=== PATIENT | female | born 1960 | race Caucasian/White ===

== ENCOUNTER 2021-06-13 13:33 | Emergency (ER) | payer BC, SELFPAY ==
--- NOTE | ~2021-06-13 | XR_ITS ---
XR knee LT min 4V DATE: 06/13/2021 13:56 INDICATION: Fall yesterday. Pain, swelling TECHNIQUE: 5 views COMPARISON: 01/24/2008 left knee FINDINGS: There is prominent distention of the suprapatellar bursa consistent with large knee joint e ffusion. There is periarticular spurring at the patellofemoral, lateral and to a greater extent medial compart ments. There is moderately severe loss of medial compartment joint space. There is valgus deformity. No fracture or dislocation, periosteal reaction or bone destruction, radiopaque intra-articular loose body or chondrocalcinosis is noted. IMPRESSION: Tricompartment osteoarthritis, most prominent at the medial compartment Prominent knee joint effusion; consider MRI for further evaluation for possible internal derangement No fracture or dislocation Reviewed, dictated and finalized at location A. IMPRESSION: Tricompartment osteoarthritis, most prominent at the medial compart ment Prominent knee joint effusion; consider MRI for further evaluation for possible internal derangement No fracture or dislocation
[2021-06-13 14:07] VITALS: BP 132/101; PULSE 80; RESP 16; TEMP 36.6; O2SAT 98
--- NOTE | 2021-06-13 15:29 | PC.NURSE ---
pt to ER with c/o left knee pain after dog running into her. PMS intact. no other injuries.
[2021-06-13] MEDS: KETOROLAC (*BKC) 60 MG/2 ML VIAL IM (16:12)
--- NOTE | 2021-06-13 16:29 | ED.FALL ---
HPI - Fall General Chief Complaint: Fall Stated Complaint: fall yesterday Time Seen by Provider: 06/13/21 15:13 Source: patient Mode of arrival: ambulatory Limitations: no limitations History of Present Illness HPI Narrative: Patient is a 61-year-old female who presents the ED with report of left knee pain. Patient reports she was tangled in her daughter's dog's leash yesterday when she fell. She landed on her left knee but is unsure of any twisting maneuvers. She complains of pain and swelling to her left knee since the fall. She states she is able to ambulate but is only able to bear minimal weight on this leg. She has been taking Tylenol at home for pain. Patient also sustained some abrasions to her right wrist, but denies any pain in her wrist. No other injuries. She did not fall and hit her head. No loss of consciousness. No prodromal symptoms prior to the fall. Related Data Allergies Allergy/AdvReac Type Severity Reaction Status Date / Time amitriptyline Allergy Mild Unverified 06/02/08 14:39 Review of Systems Review of Systems: CONSTITUTIONAL: Denies fever. CARDIOVASCULAR: Denies chest pain. RESPIRATORY: Denies dyspnea. GASTROINTESTINAL: Denies abdominal pain, nausea, vomiting. SKIN: Reports abrasion to R wrist. MUSCULOSKELETAL: Reports L knee pain. Denies R wrist pain, L ankle/hip pain. NEUROLOGIC: Denies HI, LOC, numbness, tingling, or weakness. All systems reviewed & are unremarkable except as noted in HPI and below PMFSH Past Medical History Medical History Asthma Hyperlipidemia Surgical History Surgical History (Updated 06/13/21 @ 16:31 by Afia Vargas PA-C) No pertinent past surgical history Social History Social History Smoking status: Smoker, status unknown Alcohol intake: current Exam Narrative: GENERAL: Well appearing, well-nourished, non-toxic, in no acute distress. HEAD: Normocephalic, atraumatic. RESPIRATORY: Airway patent, respirations nonlabored. Clear to auscultation bilaterally, no rales, rhonchi, wheezing. CARDIOVASCULAR: Regular rate and rhythm without murmurs, rubs, or gallops. Peripheral pulses 2+ and equal bilaterally. MUSCULOSKELETAL: Moves all extremities. No gross deformities. TTP of L anterior/superior lateral joint line. No significant pain with varus or valgus stress testing or anterior drawer test. No significant pain with ballottement of patella. Mild swelling in L knee joint compared to R. Limited flexion of L knee due to pain. Full passive extension of L knee. SKIN: Small abrasion to palm of R hand. NEURO: A&O X3. Speech clear. Cranial nerves II-XII grossly intact. Steady gait. No ataxic movements. PSYCHIATRIC: Appropriate mood and affect. Normal interaction. Course Vital Signs Vital signs: Vital Signs Temperature 98 F 06/13/21 14:07 Pulse Rate 80 06/13/21 14:07 Respiratory Rate 16 06/13/21 14:07 Blood Pressure 132/101 H 06/13/21 14:07 Pulse Oximetry 98 06/13/21 14:07 Temperature 98 F 06/13/21 14:07 Pulse Rate 80 06/13/21 14:07 Respiratory Rate 16 06/13/21 14:07 Blood Pressure 132/101 H 06/13/21 14:07 Pulse Oximetry 98 06/13/21 14:07 MDM - Fall MDM Narrative Medical decision making narrative: Patient presented to ED after fall that occurred yesterday. Complains of pain to left knee. Difficulty ambulating due to pain. Pain superior lateral on exam. Limited active range of motion due to pain. X-ray showing arthritis and prominent joint effusion. Patient without significant tenderness with ballottement of patella. No signs of compartment syndrome. Neurovascularly intact. She will be placed in a knee immobilizer. She has crutches and a walker at home for assistance with ambulation. Discussed RICE treatment. Patient was given follow-up information for Dr. Mckeon. Discussed that ligamentous and meniscal injuries are
== END 2021-06-13 16:52 | disposition home or self-care (01) ==
PROVIDERS: Emergency Provider Emergency Medicine; PCP Nurse Practitioner Family
DX: M25.462 Effusion, left knee (principal); E78.5 Hyperlipidemia, unspecified; W19.XXXA Unspecified fall, initial encounter
CPT/HCPCS: 73564; 96372; 99283; J1885

== ENCOUNTER 2022-08-19 13:56 | Emergency (ER) | payer BC, SELFPAY ==
--- NOTE | ~2022-08-19 | CT_ITS ---
EXAMINATION: CT abdomen pelvis w con DATE: 08/19/2022 16:07 INDICATION: Lower abdominal pain TECHNIQUE: Computed tomography (CT) of the abdomen and pelvis was performed with 100 mL Omnipaque-350 intravenous contrast. Automated exposure control and iterative reconstruction technique were employe d. The dose-length product was 1131.61 mGy-cm. COMPARISON: None FINDINGS: Lung bases are clear. Heart size is normal. Aortic valve calcification. No pericardial or pleural eff usion. Liver, gallbladder, spleen, pancreas and bilateral adrenal glands are normal. There are bilate ral renal cysts, the largest on the left measuring 5.3 cm and the remainder in both kidneys measuring <1 cm. Moderate diverticulosis along the sigmoid colon with mild wall thickening and subtle surround ing stranding at the proximal sigmoid colon suspicious for a mild diverticulitis. No abscess or free intraperitoneal gas. Trace amount of either reactive versus physiologic free fluid in the deep pelvis . Normal small bowel and appendix. Bladder, anteverted uterus and bilateral adnexa are unremarkable. No pathologically enlarged abdominal or pelvic lymphadenopathy. Severe spondylosis in the lower thora cic and upper lumbar spine. Chronic mild anterior wedging at T10-T12. IMPRESSION: 1. Sigmoid diverticulosis with mild wall thickening and suggestion of minimal surrounding inflammator y stranding at the proximal sigmoid colon suspicious for a mild radiographically uncomplicated divert iculitis. Reviewed, dictated and finalized at location A. IMPRESSION: 1. Sigmoid diverticulosis with mild wall thickening and suggestion of minimal s urrounding inflammatory stranding at the proximal sigmoid colon suspicious for a mild radiographically uncomplicated diverticulitis.
[2022-08-19 13:59] VITALS: BP 156/56; PULSE 65; RESP 18; TEMP 36.4; O2SAT 99
[2022-08-19 14:10] LABS: Basophils Percent Auto 0.3 % (0.2-1.2); Eosinophils Absolute Auto 0.1 K/mm3 (0-0.3); Eosinophils Percent Auto 1.9 % (0-4.4); Hematocrit 42.1 % (37.0-47.0); Hemoglobin 13.8 g/dL (12.0-15.0); Immature Granulocyte Absolute 0.01 K/mm3 (0.00-0.031); Immature Granulocyte Percent A 0.1 % (0-0.5); Lymphocytes Absolute Auto 2.14 K/mm3 (0.9-3.2); Lymphocytes Percent Auto 31.9 % (18.3-44.2); Mean Corpuscular HGB Conc 32.8 g/dl (32-36); Mean Corpuscular Volume 97.7 fl (80-100); Monocytes Absolute Auto 0.6 K/mm3 (0.1-0.6); Monocytes Percent Auto 9.1 % (2.6-8.5); Neutrophils Absolute Auto 3.8 K/mm3 (1.3-6.7); Neutrophils Percent Auto 56.7 % (45.5-73.1); Platelet Count Result 205 k/mm3 (150-375); Red Blood Count 4.31 M/mm3 (4.2-5.4); Red Cell Distribution Width 13.4 % (11.5-14.5); White Blood Count 6.7 K/mm3 (4.5-10.0)
[2022-08-19 14:20] LABS: Alanine Aminotransferase 36 U/L (6-35); Albumin Level 4.3 g/dL (3.5-5.1); Alkaline Phosphatase 109 U/L (38-126); Anion Gap 6 mmol/L (8-16); Aspartate Amino Transferase 36 U/L (14-36); Bilirubin,Total 0.4 mg/dL (0.2-1.3); Blood Urea Nitrogen 12 mg/dL (7-17); Calcium 9.2 mg/dL (8.4-10.2); Carbon Dioxide 27 mmol/L (22-30); Chloride 106 mmol/L (98-107); Estimated CRCL calculation 78 ml/min; Estimated Glomerular Filt Rate > 60; Glucose 101 mg/dL (65-110); Lipase 87 U/L (23-300); Sodium 139 mmol/L (137-145)
[2022-08-19 14:48] LABS: Appearance Urine Clear (Clear); Bilirubin Urine Negative (Negative); Blood Urine Negative (Negative); Color Urine Yellow (Yellow); Glucose Urine UA Negative (Negative); Ketones Urine Negative (Negative); Leukocyte Esterase Ur Negative LEU/UL (Negative); Nitrate Urine Negative (Negative); Protein Urine Negative (Negative); Specific Grav Ur 1.004 (1.001-1.035); Urobilinogen Urine 0.2 mg/dL (<2.0)
[2022-08-19 14:51] LABS: Add Urine Microscopic? NO
[2022-08-19] MEDS: SODIUM CHLORIDE 0.9% IV 1,000 ML 999 ML IV CONT (15:40)
--- NOTE | 2022-08-19 15:54 | ED.ABDPAIN ---
HPI - Abdominal Pain General Chief Complaint: Abdominal Pain Stated Complaint: diverticulitis is acting up Time Seen by Provider: 08/19/22 15:13 Source: patient, RN notes reviewed and old records reviewed Mode of arrival: ambulatory Limitations: no limitations History of Present Illness HPI narrative: This is a 62 year old female who presents for evaluation of bloody stools and abdominal pain. She reports lower abdominal pain for 5 days. This pain is intermittent and she describes as cramping. This pain occurs usual before she has bowel movement. She states she has been passing stool mixed with blood for 5 days. She states her bleeding has not gotten worse. She reports chills and subjective fever. She has intermittent nausea. She reports colonoscopy 3 years ago showing polyps and possible diverticulosis. She does not think she has ever had diverticulitis after further discussion. Related Data Allergies Allergy/AdvReac Type Severity Reaction Status Date / Time amitriptyline Allergy Mild Unknown Verified 08/19/22 17:23 Review of Systems Constitutional: Constitutional: Denies weakness Cardiovascular: Cardiovascular: Denies syncope, Denies rapid heart rate, Denies irregular heart rhythm, Denies leg edema and Denies dyspnea Respiratory: Respiratory: Denies chest congestion, Denies hemoptysis, Denies excessive phlegm production and Denies dyspnea Gastrointestinal: Gastrointestinal: Reports abdominal pain, Reports hematochezia, Denies diarrhea, Reports nausea and Denies vomiting Genitourinary: Genitourinary: Denies hematuria and Denies dysuria Musculoskeletal: Musculoskeletal: Denies joint swelling, Denies loss of height and Denies muscle weakness Neurologic: Denies syncope, Denies focal weakness and Denies weakness PMFSH Past Medical History Medical History Asthma Hyperlipidemia Surgical History Surgical History No pertinent past surgical history Social History Social History Smoking status: Smoker, status unknown Alcohol intake: current Exam Const: General: alert Orientation/consciousness: patient oriented x3 HENMT: Head: normal to inspection Eyes: EOM: EOMs intact bilaterally Chest: Chest palpation & inspection: normal inspection of the chest Resp: Effort & Inspection: normal respiratory effort Auscultation: clear to auscultation bilaterally Cardio: Rate: regular rate Rhythm: regular rhythm Heart sounds: no murmurs GI: GI Palp: Yes Soft to palpation, Yes Tenderness to palpation present (GI) (suprapubic), No Guarding due to palpation present (GI) and No Rigid due to palpation Auscultation: normal bowel sounds Other: no external hemorrhoid, no gross blood, no stool, faint positive hemoccult, no stool Skin: General skin exam: normal color Rashes: no rashes Wounds: no wounds Neuro: General: patient oriented x3, moves all extremities and CN's II-XI intact bilaterally Extrem: General: normal to inspection Psych: Mental Status: mental status grossly normal Affect: normal affect Attitude: cooperative Course Reevaluation(s) Reevaluation #1: PAtient is resting comfortably in bed receiving IV fluids. She denies any pain or bleeding. REctal exam did not show active bleeding. cbc is normal. I Discussed treatment with antibiotics and GI follow up. She states she has a GI doctor that she has been told to call to get colonoscopy. She will now make sure to make the appointment. Date: 08/19/22 Time: 17:03 Vital Signs Vital signs: Vital Signs Temperature 97.6 F 08/19/22 13:59 Pulse Rate 65 08/19/22 13:59 Respiratory Rate 18 08/19/22 13:59 Blood Pressure 156/56 H 08/19/22 13:59 Pulse Oximetry 99 08/19/22 13:59 Temperature 97.6 F 08/19/22 13:59 Pulse Rate 65 08/19/22 13:59 Respiratory Rate 18 07
[2022-08-19] MEDS: AMOXICILLIN/CLAVULANATE K 875-125 MG TAB 1 TABLET PO (17:23)
== END 2022-08-19 17:25 | disposition home or self-care (01) ==
PROVIDERS: Emergency Medicine; Emergency Provider General Practice; PCP Nurse Practitioner Family
DX: K57.33 Diverticulitis of large intestine without perforation or abscess with bleeding (principal); J45.909 Unspecified asthma, uncomplicated; E78.5 Hyperlipidemia, unspecified
CPT/HCPCS: 36415; 74177; 80053; 81003; 83690; 85025; 96360; 99284; A9270; J7030; Q9967

== ENCOUNTER 2022-12-16 14:58 | Emergency (ER) | payer BC, SELFPAY ==
--- NOTE | ~2022-12-16 | CT_ITS ---
EXAMINATION: CT abdomen pelvis w con DATE: 12/16/2022 16:51 INDICATION: Left abdominal pain is status post colonoscopy TECHNIQUE: Computed tomography (CT) of the abdomen and pelvis was performed with 100 mL Omnipaque-350 intravenous contrast. Automated exposure control and iterative reconstruction technique were employe d. The dose-length product was 802.47 mGy-cm. COMPARISON: 08/19/2022. FINDINGS: Lower thorax: Unremarkable Liver: Normal. Biliary/Gallbladder: Gallbladder is normal. No bile duct dilation. Pancreas: No mass or duct dilation. Spleen: Normal. Adrenals:No mass. Kidneys: No suspicious mass, obstructing stone, or hydronephrosis. 5.5 cm left inferior pole cyst. Mu ltiple additional cysts and lesions that are too small to characterize but most likely represent cyst s bilaterally. GI tract: No small or large bowel dilation. Normal appendix. Diverticulosis. Inflamed diverticulum at the junction of the descending colon and sigmoid, with minimal presumably reactive inflammation/flui d in the adjacent paracolic gutter. No free air. No abscess. Mesentery/Peritoneum: No ascites, mass, or free air. Retroperitoneum: No mass. Atherosclerotic abdominal aortic and/or arterial calcifications. Pelvis: Pelvic organs are within normal limits. Soft Tissues: Small uncomplicated bilateral inguinal hernias. Bones: No acute osseous finding. IMPRESSION: Acute uncomplicated left lower quadrant diverticulitis. Reviewed, dictated and finalized at location K.
[2022-12-16 15:13] VITALS: BP 156/73; PULSE 88; RESP 17; TEMP 36.6; O2SAT 97
--- NOTE | 2022-12-16 15:36 | ED.ABDPAIN ---
HPI - Abdominal Pain General Chief Complaint: Abdominal Pain Stated Complaint: ABD PAIN S/P COLONOSCOPY Time Seen by Provider: 12/16/22 15:36 Source: patient History of Present Illness HPI narrative: 62 years old white female came to the emergency room with pain at the left lower quadrant, sharp, feels like a scar tissue the years, worse with movement, better laying stable. She denies any fever, chills, nausea, vomiting. Patient reported vomiting once last night. Currently feeling okay declined to take any pain medication at this time. History of hyperlipidemia, she smokes cigarettes and marijuana, denies alcohol intake, denied any history of abdominal surgery. Patient had regular colonoscopy 1 week ago and was told that the finding was within normal limits. Patient drove herself to the emergency room. Related Data Allergies Allergy/AdvReac Type Severity Reaction Status Date / Time amitriptyline Allergy Mild Unknown Verified 08/19/22 17:23 Review of Systems Review of Systems: All systems reviewed & are unremarkable except as noted in HPI and below PMFSH Past Medical History Medical History Asthma Hyperlipidemia Surgical History Surgical History No pertinent past surgical history Social History Social History Smoking status: Smoker, status unknown Alcohol intake: current Exam Narrative: General appearance: Well-developed, well-nourished Skin: Normal color Head: Normocephalic, nontraumatic Eyes: Clear conjunctiva ENT: Oropharynx normal, ears normal, nose normal Neck: Supple, nontender Chest and respiratory: Airway patent, no respiratory distress, no accessory muscle use Heart: Regular rate/rhythm Abdomen: Soft, mild tenderness left lower quadrant with deep palpation, no guarding or rebound, no organomegaly, quiet bowel sounds Vascular: Normal peripheral pulses, normal capillary refill. Musculoskeletal: Normal range of motion, nontender back Neurologic: Alert and oriented ?3, TREATING ENGINEER HELPER is normal as tested, no gross motor deficit Course Reevaluation(s) Reevaluation #1: Denied any new changes compared to on arrival to the ED. Patient declined to take any pain medication Date: 12/16/22 Time: 19:11 Vital Signs Vital signs: Vital Signs Temperature 36.6 C 12/16/22 15:13 Pulse Rate 88 12/16/22 15:13 Respiratory Rate 17 12/16/22 15:13 Blood Pressure 156/73 H 12/16/22 15:13 Pulse Oximetry 97 12/16/22 15:13 Oxygen Delivery Room Air 12/16/22 15:13 Temperature 36.6 C 12/16/22 15:13 Pulse Rate 88 12/16/22 15:13 Respiratory Rate 17 12/16/22 15:13 Blood Pressure 156/73 H 12/16/22 15:13 Pulse Oximetry 97 12/16/22 15:13 Oxygen Delivery Room Air 12/16/22 15:13 MDM - Abdominal Pain MDM Narrative Medical decision making narrative: Patient presents with left lower leg pain, vital signs unremarkable, physical exam showed slight tenderness left lower quadrant with deep palpation, patient declined to take any pain medicine in the ED because the pain is not strong enough. Differential diagnosis urinary tract infection, constipation, diverticulitis, post colonoscopy complication. Work-up today showed uncomplicated diverticulitis, WBC of 10.8, urine exam showed 2+ leukocyte Estrace. Questionable asymptomatic urinary tract infection. Anyway patient will be discharged on Levaquin and Flagyl. If there is any possibility of urinary tract infection will be covered by Levaquin. Patient received Levaquin 750 mg and Flagyl 500 mg p.o. prior to discharge. [place]
[2022-12-16 16:01] LABS: Basophils Percent Auto 0.3 % (0.2-1.2); Eosinophils Absolute Auto 0.1 K/mm3 (0-0.3); Eosinophils Percent Auto 0.8 % (0-4.4); Hematocrit 42.6 % (37.0-47.0); Hemoglobin 13.7 g/dL (12.0-15.0); Immature Granulocyte Absolute 0.02 K/mm3 (0.00-0.031); Immature Granulocyte Percent A 0.2 % (0-0.5); Lymphocytes Absolute Auto 2.29 K/mm3 (0.9-3.2); Lymphocytes Percent Auto 21.1 % (18.3-44.2); Mean Corpuscular HGB Conc 32.2 g/dl (32-36); Mean Corpuscular Hemoglobin 31.4 pg (26-34); Mean Corpuscular Volume 97.7 fl (80-100); Mean Platelet Volume 9.3 fl (7.4-10.4); Monocytes Percent Auto 9.2 % (2.6-8.5); Neutrophils Absolute Auto 7.4 K/mm3 (1.3-6.7); Neutrophils Percent Auto 68.4 % (45.5-73.1); Platelet Count Result 232 k/mm3 (150-375); Red Blood Count 4.36 M/mm3 (4.2-5.4); Red Cell Distribution Width 13.8 % (11.5-14.5); White Blood Count 10.8 K/mm3 (4.5-10.0)
[2022-12-16] MEDS: ONDANSETRON INJ 4 MG/2 ML VIAL IV PUSH (16:04)
[2022-12-16] MEDS: HYDROmorphone HCL INJ (*CRX) 1 MG/ML SYR 0.5 MG IV PUSH (16:04)
[2022-12-16] MEDS: SODIUM CHLORIDE 0.9% IV 1,000 ML 999 ML IV CONT (16:04)
[2022-12-16 16:31] LABS: Alanine Aminotransferase 25 U/L (6-35); Albumin Level 3.9 g/dL (3.5-5.1); Alkaline Phosphatase 96 U/L (38-126); Anion Gap 5 mmol/L (8-16); Aspartate Amino Transferase 28 U/L (14-36); Bilirubin,Total 0.7 mg/dL (0.2-1.3); Blood Urea Nitrogen 12 mg/dL (7-17); Carbon Dioxide 29 mmol/L (22-30); Chloride 104 mmol/L (98-107); Estimated CRCL calculation 84 ml/min; Estimated Glomerular Filt Rate > 60; Glucose 101 mg/dL (65-110); Lipase 68 U/L (23-300); Potassium 3.6 mmol/L (3.4-5.0); Sodium 138 mmol/L (137-145)
[2022-12-16 17:36] LABS: Appearance Urine Clear (Clear); Bacteria Urine Rare /hpf; Bilirubin Urine Negative (Negative); Blood Urine Negative (Negative); Color Urine Yellow (Yellow); Glucose Urine UA Negative (Negative); Ketones Urine Negative (Negative); Leukocyte Esterase Ur 2+ LEU/UL (Negative); Need Manual Microscopic Reviewed; Nitrate Urine Negative (Negative); Non Pathogenic Casts 0-2; Protein Urine Negative (Negative); RBC Urine 0-2 /hpf (0-2); Specific Grav Ur 1.023 (1.001-1.035); Squamous Epithelial Cell Urine Occasional /hpf (Few); Urobilinogen Urine 0.2 mg/dL (<2.0); pH Urine 7.5 (5.0-9.0)
[2022-12-16 17:37] LABS: Add Urine Microscopic? YES
[2022-12-16] MEDS: metroNIDAZOLE 250 MG TABLET 500 MG PO (19:10)
[2022-12-16] MEDS: levoFLOXacin 500 MG TABLET 750 MG PO (19:12)
[2022-12-16 19:21] VITALS: BP 150/60; PULSE 74; RESP 20; O2SAT 99
== END 2022-12-16 19:22 | disposition home or self-care (01) ==
PROVIDERS: Emergency Provider Emergency Medicine; PCP Nurse Practitioner Family
DX: K57.92 Diverticulitis of intestine, part unspecified, without perforation or abscess without bleeding (principal); J45.909 Unspecified asthma, uncomplicated; E78.5 Hyperlipidemia, unspecified
CPT/HCPCS: 36415; 74177; 80053; 81001; 83690; 85025; 87086; 87088; 96361; 96374; 96375; 99284; A9270; J1170; J2405; J7030; Q9967

== ENCOUNTER 2023-12-10 13:00 | Outpatient (CLI) | payer OTHER, SELFPAY ==
--- NOTE | ~2023-12-10 | US_ITS ---
EXAMINATION: US soft tissue UE RT DATE: 12/10/2023 13:42 INDICATION: Right upper limb localized swelling. TECHNIQUE: Multiple grayscale and Doppler ultrasound images of the right upper limb were obtained. COMPARISON: None FINDINGS: There is a 2.7 x 0.8 x 2.5 cm ill-defined slightly hyperechoic subcutaneous mass in right u pper limb with similar echotexture to normal subcutaneous fat. IMPRESSION: 1. Subcutaneous mass in right upper limb, which may be inflammation or a lipoma. Reviewed, dictated and finalized at location A. IMPRESSION: 1. Subcutaneous mass in right upper limb, which may be inflammation or a lipoma .
== END 2023-12-10 13:01 | disposition home or self-care (01) ==
PROVIDERS: PCP Physician Assistant; Visit Provider Physician Assistant
DX: R22.31 Localized swelling, mass and lump, right upper limb (principal)
CPT/HCPCS: 76882

== ENCOUNTER 2024-07-01 00:07 | Day surgery (SDC) | payer OTHER, SELFPAY ==
[2024-06-08 09:42] VITALS: BMI 30.9
--- NOTE | 2024-06-08 09:43 | PC.NURSE ---
Report to the Outpatient Waiting Room, entrance under the green pavilion located off [facility], at time _1pm_ on date _[id number]_. Planned Procedure Time: _3pm_. Time changes happen often and if your time is changed the preop area will call you the afternoon before. - You and your visitor will be asked to self-screen and do not enter if you have any COVID symptoms. Please call surgeon if you need to reschedule. - A mask is optional within the hospital at this time. Patients may have clear liquids (water, carbonated beverages, clear teas, apple juice) until 3 hours prior to surgery with a maximum of 20 ounces. - No food from midnight until time of surgery and no smoking, or chewing tobacco (or any form of nicotine). No chewing gum, candy or mints. Take only the following medications with a SIP of water on the morning of surgery: __Bupropion DO NOT STOP ANY OF YOUR OTHER PRESCRIPTION MEDICATIONS PRIOR TO SURGERY EXCEPT THE FOLLOWING Hold all vitamins and supplements for 3 days per anesthesiologist. Medications to discontinue per physician Date to take last dose___Hold starting today. Please no make-up, nail albanian, hairspray, perfume, deodorant, or body powder the day of surgery. No jewelry (including any body piercings) or valuables the day of surgery, leave them at home. Please take a shower or bath the night before, or the morning of, surgery with an antibacterial soap. Wear comfortable, loose fitting clothing. - Jewelry must be removed prior to entering the operating room. Rings and piercings that are not removed may be cut off. - The hospital will not accept responsibility for valuables. - Please leave all valuables, including medications, at home the day of surgery. If you are going home after surgery, a licensed tanker driver must drive you home. - NO public transportation without another adult if you receive anesthesia. - We recommend that an adult stay with you for 24 hours following discharge. - We also recommend that you do not drive, make important decision, drink alcoholic beverages, or take any drugs that were not prescribed by your health care provider for at least 24 hours after your discharge time. Follow any additional instructions given to you from your surgeon. Telephone instructions given to __Rowan__and asked if any additional questions and then verbalized understanding. Patient advised to call surgeon office or pre surgery nurse liaison [phone] if any additional questions.
--- NOTE | 2024-06-17 10:09 | SUR.PREOP ---
Report to the Outpatient Waiting Room, entrance under the green pavilion located off [facility], at time 0600 on date 07/01/24. Planned Procedure Time: 0730. Time changes happen often and if your time is changed the preop area will call you the afternoon before. - You and your visitor will be asked to self-screen and do not enter if you have any COVID symptoms. Please call surgeon if you need to reschedule. - A mask is optional within the hospital at this time. Patients may have clear liquids (water, carbonated beverages, clear teas, apple juice) until 3 hours prior to surgery with a maximum of 20 ounces. - No food from midnight until time of surgery and no smoking, or chewing tobacco (or any form of nicotine). No chewing gum, candy or mints. - Infants may have breast milk until 4 hours before surgery, formula 6 hours prior to surgery. - Children will be allowed to drink immediately following surgery. If applicable, please bring a bottle or sippy cup to assist with drinking. Juice, water, soda, and popsicles are readily available. For infants on formula, please bring formula the day of surgery. Pacifiers are allowed. Take only the following medications with a SIP of water on the morning of surgery: ___bupropion___ DO NOT STOP ANY OF YOUR OTHER PRESCRIPTION MEDICATIONS PRIOR TO SURGERY EXCEPT THE FOLLOWING Hold all vitamins and supplements for 3 days per anesthesiologist. Medications to discontinue per physician hold supplement and vitamins 3 day prior Date to take last dose Please no make-up, nail omani, hairspray, perfume, deodorant, or body powder the day of surgery. No jewelry (including any body piercings) or valuables the day of surgery, leave them at home. Please take a shower or bath the night before, or the morning of, surgery with an antibacterial soap. Wear comfortable, loose fitting clothing. Children are encouraged to wear pajamas. - Jewelry must be removed prior to entering the operating room. Rings and piercings that are not removed may be cut off. - The hospital will not accept responsibility for valuables. - Please leave all valuables, including medications, at home the day of surgery. If you are going home after surgery, a licensed crew truck driver must drive you home. - NO public transportation without another adult if you receive anesthesia. - We recommend that an adult stay with you for 24 hours following discharge. - We also recommend that you do not drive, make important decision, drink alcoholic beverages, or take any drugs that were not prescribed by your health care provider for at least 24 hours after your discharge time. For Pediatric surgeries, we recommend two adults accompany the child home. Follow any additional instructions given to you from your surgeon. Telephone instructions given to _patient_and asked if any additional questions and then verbalized understanding. Patient advised to call surgeon office or pre surgery nurse liaison [phone] if any additional questions.
--- OUTSIDE RECORDS SUMMARY | 2024-07-01 00:11 | XMS_ITS | Clinical Summary ---
Author Organization [facility] [place] Address [address] [place] [address] Care Team Providers Care Scow Derrick Operator Name Role Phone Unavailable Primary Care Provider Unavailabl e Social History Tobacco Use Types Packs/Day Years Used Date Smoking Tobacco: Never Assessed Comments Unknown Sex and Gender Information Value Date Recorded Sex Assigned at Not on file Legal Sex Female 12:40 AM PST Gender Identity Not on file Sexual Orientation Not on file Plan of Treatment Not on file
--- OUTSIDE RECORDS SUMMARY | 2024-07-01 00:11 | XMS_ITS | Referral Summary ---
Author Organization [facility] Address [address] [place] [id number] Care Team Providers Care Superintendent Stations Name Role Phone Unavailable Primary Care Provider Unavailabl e Social History Tobacco Use Types Packs/Day Years Used Date Smoking Tobacco: Never Assessed Comments No Sex and Gender Information Value Date Recorded Sex Assigned at Not on file Legal Sex Female 12:04 PM CDT Gender Identity Not on file Sexual Orientation Not on file Last Filed Vital Signs Vital Sign Reading Time Taken Comments Blood Pressure 153/81 06/17/2020 1:44 PM CDT Pulse 75 06/17/2020 1:44 PM CDT Temperature 36.7 C (98.1 F) 06/17/2020 1:44 PM CDT Respiratory Rate - - Oxygen Saturation 98% 06/17/2020 1:44 PM CDT Inhaled Oxygen Concentration - - Weight 99.2 kg (218 lb 11.2 oz) 06/17/2020 1:44 PM CDT Height 168.9 cm (5' 6.5 ) 06/17/2020 1:44 PM CDT Body Mass Index 34.77 06/17/2020 1:44 PM CDT Plan of Treatment Not on file Procedures Procedure Name Priority Date/Time Associated Diagnosis Comments SCREENING MAMMOGRAM BILATERAL W NAHEED Schedule Routine, Read Routine (OP Routine) 12/03/2023 11:31 AM CDT Screening mammogram, encounter for from Last 3 Months or Most Recently Relevant to Health Maintenance Results * Screening Mammogram Bilateral W Naheed (12/03/2023 11:31 AM CDT) Anatomical Region Laterality Modality Breast Bilateral Mammography Impressions 12/03/2023 11:48 AM CDT BI-RADS ATLAS category (overall): 1 - Negative There is no mammographic evidence of malignancy. A 1 year screening mammogram is recommended. The patient has been or will be contacted. We recommend annual screening mammography for women at average risk of breast cancer beginning at age 40, based on guidelines of the [employer] (ACR Practice Parameter for the Performance of Screening and Diagnostic Mammography) and [employer] [place]. For women with and elevated risk of breast cancer, please refer to the ACR Practice Parameter for specific screening recommendations. The patient will be entered into a reminder system with a target due date of 1 year for her next screening exam. Narrative 12/03/2023 11:48 AM CDT Screening Mammogram Bilateral W Naheed: 12/03/23 The study was acquired using full field digital technology and interpreted from soft copy. 2D digital mammographic views, as well as 3D digital tomosynthesis were performed in the CC and MLO projections. CLINICAL: Screening mammogram, encounter for. No relevant medical history has been documented for this patient. No known family history of breast cancer. COMPARISONS: 07/30/2020 Screening Mammogram Bilateral W Naheed 11/10/2018 Screening Mammogram 2D Bilateral 06/13/2016 Screening Mammogram 2D Bilateral BREAST TISSUE: There are scattered areas of fibroglandular density. FINDINGS: No suspicious masses, suspicious calcifications, or other suspicious findings are seen within either breast. There has been no suspicious change. us Self Screening Mammogram IMG MAMMO PROCEDURES Fi nal Result from Last 3 Months or Most Recently Relevant to Health Maintenance Insurance [employer]
--- OUTSIDE RECORDS SUMMARY | 2024-07-01 00:11 | XMS_ITS | Continuity of Care Document ---
Author Organization [facility] Address [address] [place] [address] [place] [address] Phone Care Team Providers Care Jeeper Operator Name Role Phone Deon Carlos DO Unavailable Unavailable Advance Directives Directive Yes / No Effective Date File Name No Information Encounters Encounter Description Practice Location Reason(s) For Visit Diagnoses Date Provider Providers Copied on Encounter [facility], [id number] [place] [address] [address], [place], [place], [id number], [place] tel:[phone] [facility] No Information Terrance Shaikh. [address] [facility], [place], [address], [place]. tel:[phone] Family History Family Member Type Diagnosis Age At Onset No Information Payers Payer name Insurance type Covered libertarian ID Authoriza tion(s) No Information Social History Type Description Quantity Date Captured Comments Sex Female Smoking Status No Information Chief Complaint And Reason For Visit No Information Reason For Referral Reason For Referral No Information History Of Present Illness Encounter Date Complaint History Of Prese nt Illness No Information Functional Status Date Functional Assessmen t No Information Instructions Date Instruction Additional Infor mation No Information Assessments Type Assessment Date No Information Patient Care Teams Name Effective Dates (start - stop) Status Members No Information
--- OUTSIDE RECORDS SUMMARY | 2024-07-01 00:11 | XMS_ITS | Data Portability ---
Author Organization ID - [facility] [employer], Main Office Address [address] [place] [address] Assessment Encounter Date Assessment Date Assessment LastModified by Organization Details LastModified Time 11/13/2022 11/13/2022 C-scope- ordered- [facility]- has scheduled for a few weeks from now Mammogram- 07/2020- has order from [facility]NIC[facility] Call office if worse, ER if life threatening illness RTC 6 months and PRN She voices understanding of plan and agrees [email or web address] Not available 11/13/2022 12:58:59 01/18/2023 01/18/2023 C-scope-11/2022- repeat 5 years- 11/2027 Mammogram- 07/2020- has order from [facility]CHNIC[facility] Call office if worse, ER if life threatening illness RTC 6 months and PRN- patient plans to transfer care to a PCP in [place] She voices understanding of plan and agrees [email or web address] Not available 01/18/2023 14:06:53 05/20/2023 05/20/2023 Assessment: Very severe OSAHS, AHI = 84 4 mm LAYNE pulm nodule Plan: The following were reviewed and explained to the patient: primary care/referral note Chest CT 06/17/20 4 mm LAYNE pulm nodule Chest CT 10/16/22 4 mm [address] pulm nod[address] [facility] split sleep study 12/22/15 AHI = 84, ResMed medium AirFit P10 nasal pillows @ 9 cmH2O Her PCP is monitoring her LAYNE nodule. PAP compliance downloaded and interpreted x 20 minutes. Data reviewed and explained to the patient. Average apnea/hypopnea index (AHI) is 1.7. Patient used PAP > 4 hours 100% of the time. PAP is set at 8-16 cmH2O. PAP will be reset at 9-14 cmH2O. Keep ramp at 4 cmH2O. Keep ramp duration at 5 minutes. Oxygen supplementation: none Patient is benefiting from PAP therapy. Encouraged patient to maintain PAP use more than 70% of the time. Statement of PAP use and benefits will be sent to the home care store. Educated the patient on problems and solutions associated with positive airway pressure (PAP) use. Difficulty tolerating pressure, mask leaks, intolerance of interface, nasal congestion, claustrophobic response, dry mouth, and unintentional mask removal during sleep were covered. Patient's mask leaks air. We will ensure the mask is situated properly. Patient can wear protective eye covering during sleep, and the mask can be resized. Dry mouth is a normal occurrence for people who just start out on PAP therapy because they are not used to air blowing in to the throat to hold open. Dry mouth is exacerbated for people who wear nasal PAP mask and whose jaw drops open during sleep. Not only does this create a much less efficient therapy because of leakage, it also causes dry mouth. There are a couple solutions to help prevent this type of problem. A simple solution would be to wear a chinstrap which essentially holds the jaw in place. A second solution would be a switch to a full face mask which covers both the nose and mouth. Although this is another easy solution, using a full face mask for some could seem claustrophobic or confining. There is no silver bullet solution as no single mask is right for everybody. Sometimes it takes a bit of experimentation to find a PAP mask which best meets the patient's needs as well as fits comfortably. Another tactic is to use a humidifier on your PAP machine. Most new PAP machines have integrated humidifiers. Humidification is kumar when dealing with symptoms of dry mouth because the humidifier can supply both warm and room temperate air. Even a small amount of humidity in the airflow will help nasal passages to stay hydrated. If a person is using both a full face mask and a PAP machine with a heated humidifier and is still experiencing dry mouth, an ill-fitted PAP mask might be causing the problem. Leakage can be caused by a mask that is to large or small, the wrong style mask, the cushion is degraded or simply because the mask's straps aren't adjusted correctly. If leakage occurs, dry air from the room can leak in while humidification escapes. The result is reduced humidification within the circuit and resulting in dry throat and mouth. Finally, beyond factors involving the PAP machine and mask, dry mouth can also be caused or worsened by dehydration. The general recommendation to during eight 8 oz. glasses of water a day might be too little for many people. When people drink large amounts of coffee or other caffeine beverages, or sweat a lot during the day, making sure to rehydrate is an important part of PAP therapy. ResMed Air Sense 11 auto set unit with heated humidifier, supplies, ResMed medium AirFit P10 nasal pillows at 9-14 cmH2O ordered. Further titration will be based on clinical response. Provided the patient with a list of local home care stores where positive airway pressure (PAP) units, accoutrement, and services are available. Home care store selection is based on patient's insurance carrier. Patient will setup an appointment with [facility] for supplies and pressure adjustments. A major predictor of success with use of PAP is follow-up with both the respiratory supplier and the treating physician. The respiratory supplier optimally will follow-up within two weeks after starting use while the treating physician optimally will follow-up within 90 days after starting therapy to assess adherence and effectiveness of treatment. The download results can show the treating physician information about adherence to treatment, residual AHI while on treatment and presence of large mask leakage. This information is especially helpful if the patient has residual sleepiness despite treatment. General information on sleep disordered breathing, evaluation of sleep disordered breathing, treatment with PAP therapy, and living with PAP therapy were covered. We discussed with the patient the impact of weight on: Sleep disordered breathing Mixed hyperlipidemia Prediabetes CAROLINA Inguinal hernias Thoracolumbar spondylosis Left knee OA/fractures Left lateral meniscus tear Left anterior cruciate ligament rupture We discussed with the patient the benefit of PAP therapy on: Sleep disordered breathing Depression/Anxiety Rhinosinusitis Prediabetes CAROLINA Educated the patient on sleep hygiene measures. Relaxing rituals to rest easy, understanding foods with positive and negative impact on sleep, creating a peaceful sleep environment, timing of exercise, using herbal sleep aids, and practicing sleep-friendly meditation were covered. To determine how much sleep is needed, the patient will assess where she falls on the spectrum, examine what lifestyle factors such as work schedules and stress are affecting the quality and quantity of sleep. In general, adults need 7-9 hours of sleep. Educated the patient regarding foods that promote sleep. These include but are not limited to cherries, bananas, toast, oatmeal, and warm milk. Educated the patient regarding foods and drinks to avoid before bedtime. These include but are not limited to aged cheese, chocolate, spicy foods, tomato-based sauces, soy, ginseng tea and processed meat. Advocated influenza vaccination annually and pneumonia vaccination MARVIN. Advocated weight loss through diet and exercise. Patient's ideal body weight according to height and gender is up to 135 lbs. Encouraged patient to adjust caloric intake to maintain/achieve ideal body weight, emphasizing on fruits, vegetables, whole grains, and fat-free or low-fat products. These include lean meats, poultry, fish, beans, eggs, and nuts and foods that are low in saturated fats, trans-fats, cholesterol, salt (sodium), and glycemic index. Stressed the importance of regular exercise up to the patient's capacity limits. In this case, we recommend 20 min daily walking, 2 days a week of resistance training. Patient to monitor BP daily and bring records to PCP for further management. Follow-up: 3 months, August 2023 [facility] Not available 05/20/2023 15:45:10 10/23/2023 10/23/2023 Assessment: Very severe OSAHS, AHI = 84 4 mm LAYNE pulm nodule Plan: The following were reviewed and explained to the patient: Chest CT 06/17/20 4 mm LAYNE pulm nodule Chest CT 10/16/22 4 mm [address] pulm nod[address] [facility] split sleep study 12/22/15 AHI = 84, ResMed medium AirFit P10 nasal pillows @ 9 cmH2O Her PCP is monitoring her LAYNE nodule. PAP compliance downloaded and interpreted x 20 minutes. Data reviewed and explained to the patient. Average apnea/hypopnea index (AHI) is 1.9. Patient used PAP > 4 hours 95% of the time. PAP is set at 9-14 cmH2O. PAP will be reset at 10-14 cmH2O. Keep ramp off. Keep EPR off. Keep humidifier level at 4. Oxygen supplementation: none Patient is benefiting from PAP therapy. Encouraged patient to maintain PAP use more than 70% of the time. Statement of PAP use and benefits will be sent to the home care store. Educated the patient on problems and solutions associated with positive airway pressure (PAP) use. Difficulty tolerating pressure, mask leaks, intolerance of interface, nasal congestion, claustrophobic response, dry mouth, and unintentional mask removal during sleep were covered. Patient's mask leaks air. We will ensure the mask is situated properly. Patient can wear protective eye covering during sleep, and the mask can be resized. Dry mouth is a normal occurrence for people who just start out on PAP therapy because they are not used to air blowing in to the throat to hold open. Dry mouth is exacerbated for people who wear nasal PAP mask and whose jaw drops open during sleep. Not only does this create a much less efficient therapy because of leakage, it also causes dry mouth. There are a couple solutions to help prevent this type of problem. A simple solution would be to wear a chinstrap which essentially holds the jaw in place. A second solution would be a switch to a full face mask which covers both the nose and mouth. Although this is another easy solution, using a full face mask for some could seem claustrophobic or confining. There is no silver bullet solution as no single mask is right for everybody. Sometimes it takes a bit of experimentation to find a PAP mask which best meets the patient's needs as well as fits comfortably. Another tactic is to use a humidifier on your PAP machine. Most new PAP machines have integrated humidifiers. Humidification is kumar when dealing with symptoms of dry mouth because the humidifier can supply both warm and room temperate air. Even a small amount of humidity in the airflow will help nasal passages to stay hydrated. If a person is using both a full face mask and a PAP machine with a heated humidifier and is still experiencing dry mouth, an ill-fitted PAP mask might be causing the problem. Leakage can be caused by a mask that is to large or small, the wrong style mask, the cushion is degraded or simply because the mask's straps aren't adjusted correctly. If leakage occurs, dry air from the room can leak in while humidification escapes. The result is reduced humidification within the circuit and resulting in dry throat and mouth. Finally, beyond factors involving the PAP machine and mask, dry mouth can also be caused or worsened by dehydration. The general recommendation to during eight 8 oz. glasses of water a day might be too little for many people. When people drink large amounts of coffee or other caffeine beverages, or sweat a lot during the day, making sure to rehydrate is an important part of PAP therapy. ResMed Air Sense 11 auto set unit with heated humidifier, supplies, ResMed medium AirFit P10 nasal pillows at 9-14 cmH2O ordered. Further titration will be based on clinical response. Provided the patient with a list of local home care stores where positive airway pressure (PAP) units, accoutrement, and services are available. Home care store selection is based on patient's insurance carrier. Patient will setup an appointment with [facility] for supplies and pressure adjustments. A major predictor of success with use of PAP is follow-up with both the respiratory supplier and the treating physician. The respiratory supplier optimally will follow-up within two weeks after starting use while the treating physician optimally will follow-up within 90 days after starting therapy to assess adherence and effectiveness of treatment. The download results can show the treating physician information about adherence to treatment, residual AHI while on treatment and presence of large mask leakage. This information is especially helpful if the patient has residual sleepiness despite treatment. General information on sleep disordered breathing, evaluation of sleep disordered breathing, treatment with PAP therapy, and living with PAP therapy were covered. We discussed with the patient the impact of weight on: Sleep disordered breathing Mixed hyperlipidemia Prediabetes CAR[place]INA Inguinal hernias Thoracolumbar spondylosis Left knee OA/fractures Left lateral meniscus tear Left anterior cruciate ligament rupture We discussed with the patient the benefit of PAP therapy on: Sleep disordered breathing Depression/Anxiety Rhinosinusitis Prediabetes CAR[place]INA Educated the patient on sleep hygiene measures. Relaxing rituals to rest easy, understanding foods with positive and negative impact on sleep, creating a peaceful sleep environment, timing of exercise, using herbal sleep aids, and practicing sleep-friendly meditation were covered. To determine how much sleep is needed, the patient will assess where she falls on the spectrum, examine what lifestyle factors such as work schedules and stress are affecting the quality and quantity of sleep. In general, adults need 7-9 hours of sleep. Educated the patient regarding foods that promote sleep. These include but are not limited to cherries, bananas, toast, oatmeal, and warm milk. Educated the patient regarding foods and drinks to avoid before bedtime. These include but are not limited to aged cheese, chocolate, spicy foods, tomato-based sauces, soy, ginseng tea and processed meat. Advocated influenza vaccination annually and pneumonia vaccination MARVIN. Advocated weight loss through diet and exercise. Patient's ideal body weight according to height and gender is up to 135 lbs. Encouraged patient to adjust caloric intake to maintain/achieve ideal body weight, emphasizing on fruits, vegetables, whole grains, and fat-free or low-fat products. These include lean meats, poultry, fish, beans, eggs, and nuts and foods that are low in saturated fats, trans-fats, cholesterol, salt (sodium), and glycemic index. Stressed the importance of regular exercise up to the patient's capacity limits. In this case, we recommend 20 min daily walking, 2 days a week of resistance training. Patient to monitor BP daily and bring records to PCP for further management. Follow-up: 1 year, October 2024 [email or web address] Not available 10/23/2023 16:02:19 01/07/2024 01/07/2024 RUE subcutaneous fatty mass. Discussed options with patient including excision here in the office vs. OR. She strongly prefers to have conscious sedation rather than just local anesthesia d/t anxiety associated with the procedure. Explained procedure and risks including pain, bleeding, paresthesias. Patient voiced understanding and wishes to schedule. [email or web address] Not available 01/07/2024 12:49:17 Plan of Treatment Reminders Order Date Submit Date Provider Last Modified By Organization Details Last Modified Time Details Appointments Any 30 025 02:00PM Rene Conley MD Not available Not available Not available Lab None record ed. Referral None record ed. Procedures None record ed. Surgeries None record ed. Imaging None record ed. Medication Orders None record ed. Patient TargetsNo targets recorded. Patient InstructionsNo instructions recorded. Reason for Referral None Reported. Results Created Date Observation Date Name Description Value Unit Range Abnormal Flag Note LastModifiedBy Organization Detail LastModifiedTime 10/19/1910/16/2022 CT, chest , w/o contr ast No observ ation record ed. [address] [place], [address], 10/19/2022 15:24:30 12/17/19 23 12/16/2022 CT, abdom en + pelvi s, w/ contr ast No observ ation record ed. [address], [place], [address], 12/18/2022 10:52:35 05/15/19 24 12/22/2015 polys omnog elizabeth, split night No observ ation record ed. [facility] Not Available 2023 17:01:45 Result Notes None recorded. Problems Name Problem SNOMED Code Status Onset Date Resolution Date Notes Provider Name and Address Organization Details Recorded Time Prediabete s 730540700 Active 2022 GISEL Manrique [address], [place], [address] , [employer] 3 14:47:31 Solitary nodule of lung 486417534 Active 2022 GISEL Manrique [address], [address], [place], [address] , [employer] 3 14:47:48 Chronic sinusitis 07676437 Active 2022 GISEL Manrique [address], [address], [place], [address] , [employer] 3 14:47:53 Vitamin B12 deficiency (non anemic) 76952105 Active 2022 MARLA ManriqueC [address], [place], [address] , [employer] 3 14:48:02 Anxiety 31835167 Active 2022 GISEL Manrique [address], [place], [address] , [employer] 3 14:48:25 Nicotine dependence 26532713 Active 2022 MARLA ManriqueC [address], [place], [address] , [employer] 3 14:48:30 Gastroesop hageal reflux disease without esophagiti s 346184282 Active 2022 THADDEUS Manrique-Johnny [address], [place], [address] , [employer] [facility] 3 14:48:35 Allergic rhinitis 97923556 Active 2022 THADDEUS Manrique-Johnny [address], [place], [address] , [employer] [facility] 3 14:48:41 Diverticul itis 730488801 Active 2022 Joann carias, [employer] [facility] 3 14:00:22 Mass of soft tissue 226816340 Active 2023 Tyler joshi MD [address], [place], [address] , [employer] [facility] 4 13:29:02 Shoulder joint pain 052598330 Completed 201603/10/2018 Not Available [facility] 3 04:52:07 Vitamin D deficiency 53959512 Active 2016 Not Available [employer] 3 04:52:07 Depressive disorder 94176832 Active Not Available [facility] 3 04:52:07 Osteoarthr itis 021200484 Active 2021 Not Available [facility] 3 04:52:07 Obesity 867022968 Active 2017 Not Available [employer] 3 04:52:08 Hyperlipid emia 61628575 Active 2016 Not Available [employer] 3 04:52:08 Obstructiv e sleep apnea syndrome 97736515 Active 2020 Not Available [employer] 3 04:52:08 COVID-19 814011243 Active 2022 Not Available [employer] 3 04:52:08 Notes:Medical History: Nicot ine use Depression/Anxiety COVID infection 10/2019 Rhinosinusitis with postnasal drip 4 mm LAYNE pulm nodule Obesity with very severe OSAHS, AHI = 84, 12/22/15, on [facility]AP c/o [facility] Mixed hyperlipidemia Prediabetes CAR[place]INA Diverticulosis/Diverticulitis Bilateral inguinal hernias Bilateral renal cysts Vit B12 deficiency Vit D deficiency Thoracolumbar spondylosis Left knee OA/fractures Left lateral meniscus tear Left anterior cruciate ligament rupture Procedure History: C-sections 1988, 1992 Right CTS release surgery 2013 Right rotator cuff surgery 2016 Left CTS release surgery 2019 Left foot surgery 2022 Occupational History: Wedding planner/scheduler Some problems listed in Document: #[id number] could not be added to this patient's chart. Please review this document and add these problems to the patient's chart manually as needed. Problem Notes None recorded. Procedures Surgical History Date Name Laterality Status Provider Name and Address Organization Details Recorded Time 12/03/19 19 Unlisted px dentalvlr strux completed Not Available [facility] 04/18/2022 04:43:13 02/05/20 17 Rotator cuff surgery completed Not Available [facility] 04/18/2022 04:43:13 Foot completed Not Available [facility] 02/2022 04:43:13 biopsy of skin completed Not Available [facility] 04/18/2022 04:43:13 Carpal tunnel completed Not Available [facility] 04/18/2022 04:43:13 section completed Not Available [facility] 04/18/2022 04:43:13 colonoscopy completed Not Available [facility] 04/18/2022 04:43:13 Imaging Results Imaging Date Name Status LastModified by Organiz ation Details LastModified Time 10/16/2022 CT, chest, w/o contrast completed [address] [place], [address], 10/19/2022 15:24:30 12/16/2022 CT, abdomen + pelvis, w/ contrast completed [address], [address], 12/18/2022 10:52:35 12/22/2015 polysomnogram , split night completed [facility] Information not available 05/15/2023 17:01:45 Procedure Notes None recorded. Medical Equipment None Reported. Allergies Allergen ID Allergen Name Allergen Category Reaction Reaction Severity Criticality Documentation Date Start Date Code Code System Note Provider Name and Address Organization Details Recorded Time 8576 Toxicoden dron vernix leafy twig extract Not available Not available Not available Not available 04/18/2022 04784 61 RxNorm Not Available [facility] 3 05:05:58 8578 poison oak extract environme nt Not available Not available Not available 04/18/2022 27037 UNK Not Available [facility] 3 05:05:58 8579 poison emeka extract environme nt Not available Not available Not available 04/18/2022 10247 6 RxNorm Not Available [facility] 3 05:05:59 8581 Elavil medicatio n Not available Not available Not available 04/18/2022 06755 RxNorm Not Available [facility] 3 05:05:59 Medications Name Sig Start Date Stop Date Status Note LastModified by Organization Details LastModified Time amoxicilli n 500 mg capsule Take 1 capsule 3 times a day by oral route for 10 days. 10/06 completed Not Available Not Available Not Available prednisone 10 mg tablet 30mg x 2 days, 20mg x 2 days, 10mgx 2 days active Not Available Not Available No t Available doxycyclin e hyclate 100 mg capsule TAKE 1 CAPSULE BY MOUTH TWICE A DAY FOR SKIN INFECTIO N active Not Available Not Available No t Available albuterol sulfate 2.5 mg/3 mL (0.083 %) solution for nebulizati on Inhale 3 mL 3 times a day by nebuliza tion route. 05/15 completed Not Available Not Available Not Available atorvastat in 10 mg tablet TAKE 1 TABLET ONCE A DAY 05/19 completed Not Available Not Available Not Available azithromyc in 250 mg tablet TAKE 2 TABLETS BY MOUTH TODAY, THEN TAKE 1 TABLET DAILY FOR 4 DAYS 11/13 completed Not Available Not Available Not Available clorazepat e dipotassiu m 3.75 mg tablet take 1 po bid prn active Not Available Not Available No t Available fluconazol e 150 mg tablet TAKE 1 TABLET BY MOUTH ON DAY 3, 7, AND 10 OF ANTIBIOT IC COURSE. active Not Available Not Available No t Available hydrocodon e 5 mg-acetami nophen 325 mg tablet 12/09 completed Not Available Not Available Not Available ondansetro n HCl 8 mg tablet 04/12 completed Not Available Not Available Not Available metronidaz ole 0.75 % (37.5 mg/5 gram) vaginal gel 07/06 completed Not Available Not Available Not Available prednisone 20 mg tablet 07/25 completed Not Available Not Available Not Available penicillin V potassium 500 mg tablet 06/07 completed Not Available Not Available Not Available metronidaz ole 500 mg tablet TAKE 1 TABLET BY MOUTH EVERY 6 HOURS 01/18 completed Not Available Not Available Not Available acetaminop hen 300 mg-codeine 30 mg tablet 12/09 completed Not Available Not Available Not Available ciprofloxa arianna 500 mg tablet Take 1 tablet twice a day by oral route for 7 days. 07/08 completed Not Available Not Available Not Available omeprazole 40 mg capsule,de layed release Take 1 capsule every day by oral route. 04/12 completed Not Available Not Available Not Available tramadol 50 mg tablet TAKE 1 TABLET BY MOUTH EVERY 6 HOURS NEEDED FOR PAIN active Not Available Not Available No t Available Gentak 0.3 % (3 mg/gram) eye ointment APPLY A SMALL AMOUNT (1/2 INCH) TO THE LOWER LID OF THE AFFECTED EYE(S) BY OPHTHALM IC ROUTE 2 TIMES PER DAY UNTIL GONE 11/13 completed Not Available Not Available Not Available Kenalog 40 mg/mL suspension for injection Take 40 mL by injectio n route as directed . 10/06 completed Not Available Not Available Not Available oxycodone- acetaminop hen 5 mg-325 mg tablet 06/07 completed Not Available Not Available Not Available omeprazole 10 mg capsule,de layed release Take 1 capsule every day by oral route before meals. 01/02 completed Not Available Not Available Not Available ciprofloxa arianna 0.3 % eye drops INSTILL 1 DROP INTO AFFECTED EYE(S) BY OPHTHALM IC ROUTE EVERY 2 HOURSWHI LE AWAKE FOR 2 DAYS THEN 1 DROP EVERY 4 HRS WHILE AWAKE FOR 5 DAYS active Not Available Not Available No t Available cephalexin 500 mg capsule TAKE 1 CAPSULE BY MOUTH EVERY 6 HOURS 10/22 completed Not Available Not Available Not Available tobramycin 0.3 % eye drops INSTILL ONE DROP INTO THE AFFECTED EYE(S) EVERY FOUR HOUR 12/05 completed Not Available Not Available Not Available bupropion HCl 75 mg tablet TAKE TWO TABLETS BY MOUTH ONCE DAILY IN THE MORNING active Not Available Not Available No t Available Valtrex 1 gram tablet Take 1 tablet 3 times a day by oral route for 7 days. 11/13 completed Not Available Not Available Not Available omeprazole 20 mg capsule,de layed release Take 1 capsule every day by oral route. active Not Available Not Available No t Available diclofenac sodium 75 mg tablet,del ayed release Take 1 tablet twice a day by oral route with meals. 05/08 completed Not Available Not Available Not Available etodolac 400 mg tablet TAKE ONE TABLET BY MOUTH TWICE A DAY 12/09 completed Not Available Not Available Not Available montelukas t 10 mg tablet TAKE 1 TABLET ONCE DAILY 05/19 completed Not Available Not Available Not Available lorazepam 1 mg tablet TAKE 2 TABLETS BY MOUTH 1 HOUR PRIOR TO PROCEDUR E active Not Available Not Available No t Available levofloxac in 750 mg tablet TAKE 1 TABLET BY MOUTH EVERY DAY 01/18 completed Not Available Not Available Not Available methylpred nisolone 4 mg tablets in a dose pack TAKE 6 TABLETS ON DAY 1 DIRECTED ON PACKAGE AND DECREASE BY 1 TAB EACH DAY FOR A TOTAL OF 6 DAYS 11/13 completed Not Available Not Available Not Available albuterol sulfate HFA 90 mcg/actuat ion aerosol inhaler INHALE TWO PUFFS BY MOUTH EVERY 4 HOURS active Not Available Not Available No t Available Vitamin D2 1,250 mcg (50,000 unit) capsule Take 1 capsule every week by oral route. 11/13 completed Not Available Not Available Not Available cefdinir 300 mg capsule Take 1 capsule every 12 hours by oral route. active Not Available Not Available No t Available fluticason e propionate 50 mcg/actuat ion nasal spray,susp ension USE 2 SPRAYS INTO EACH NOSTRIL ONCE A DAY 08/03 completed Not Available Not Available Not Available amoxicilli n 875 mg-potassi um clavulanat e 125 mg tablet TAKE 1 TABLET BY MOUTH EVERY 12 HOURS 11/13 completed Not Available Not Available Not Available Laxative (bisacodyl ) 5 mg tablet,del ayed release TAKE 6 TABLETS BY MOUTH AT 8AM ON 12/13 completed Not Available Not Available Not Available bupropion HCl XL 300 mg 24 hr tablet, extended release TAKE 1 TABLET EVERY MORNING active Not Available Not Available No t Available bupropion HCl XL 150 mg 24 hr tablet, extended release 10/06 completed Not Available Not Available Not Available duloxetine 30 mg capsule,de layed release TAKE ONE CAPSULE BY MOUTH ONCE DAILY active Not Available Not Available No t Available duloxetine 60 mg capsule,de layed release Take 1 capsule every day by oral route. 06/12 completed Not Available Not Available Not Available Sulfametho xazole-TMP DS 05/15 completed Not Available Not Available Not Available Todd 3 07/25 completed Not Available Not Available Not Available multivitam in QD 07/06 completed Not Available Not Available Not Available Wal-itin 06/12 completed Not Available Not Available Not Available Wal-Dram 2015 active Not Available Not Available Not Avai lable Gavilyte-C 240 gram-22.72 gram-6.72 gram-5.84 gram oral solution MIX WITH LIQUID AND TAKE 1/2 JUG BY MOUTH AT 5PM 12/13 THEN 1/2 JUG AT 5AM 12/14 completed Not Available Not Available Not Available Suprep Bowel Prep Kit 17.5 gram-3.13 gram-1.6 gram oral solution 07/06 completed Not Available Not Available Not Available magnesium citrate 100 mg tablet Take 1 tablet twice a day by oral route. 07/06 completed PRN Not Available Not Available Not Available Multi Vitamin 06/15 completed Not Available Not Available Not Available Spiriva Respimat 2.5 mcg/actuat ion solution for inhalation Inhale 2 puffs every day by inhalati on route. 01/02 completed sample given in office Not Available Not Available Not Available MegaRed Todd-3 Krill Oil 500 mg-115 mg-30 mg-64 mg capsule Take 1 capsule every day by oral route. 2018 active Not Available Not Available Not Avai lable Vitamin B12 07/06 completed Not Available Not Available Not Available cannabidio l (CBD) oral oil Take 1 mL twice a day by oral route. 08/11 completed Not Available Not Available Not Available Sutab 1.479-0.18 8-0.225 gram tablet Take DIRECTED for bowel prep for colonosc opy 12/05 completed Not Available Not Available Not Available Neuriva Original 100mg 07/06 completed Not Available Not Available Not Available Paxlovid 300 mg (150 mg x 2)-100 mg tablets in a dose pack TAKE 2 TABLETS OF NIRMATRE LVIR WITH 1 TABLET OF RITONAVI R TOGETHER BY MOUTH TWICE A DAY FOR 5 DAYS 05/08 completed Not Available Not Available Not Available Vitals Date Recorded Body height Body mass index (BMI) Body weight Body temperature Heart rate Oxygen saturation Oxygen saturation in Arterial blood by Pulse oximetry Systolic blood pressure Diastolic blood pressure Provider Name and Address Organization Details Last Updated DateTime 3 165.1 cm 35.4 kg/m2 46884.1 7 g 97.6 [degF] 72 /min 98 % 98 % 128 mm[Hg] 76 mm[Hg] Claritza Lee [facility] [employer] [facility] 3 11:41:22 Date Recorded Body height Body mass index (BMI) Body weight Body temperature Heart rate Oxygen saturation Oxygen saturation in Arterial blood by Pulse oximetry Systolic blood pressure Diastolic blood pressure Provider Name and Address Organization Details Last Updated DateTime 3 165.1 cm 32.9 kg/m2 15777.2 9 g 98 [degF] 74 /min 98 % 98 % 124 mm[Hg] 78 mm[Hg] Claritza Lee [facility] [employer] [facility] 3 12:09:44 Date Recorded Body height Body mass index (BMI) Body weight Body temperature Oxygen saturation Oxygen saturation in Arterial blood by Pulse oximetry Systolic blood pressure Diastolic blood pressure Provider Name and Address Organization Details Last Updated DateTime 4 165.1 cm 32.3 kg/m2 55733.6 4 g 98 [degF] 98 % 98 % 130 mm[Hg] 76 mm[Hg] Rowan Muñoz MA [facility] [employer] [facility] 14:35:16 Date Recorded Heart rate Heart rate Respiratory rate Provider Name and Address Organization Details Last Updated DateTime 05/20/2023 61 /min 61 /min 15 /min Rene Conley MD [address] [facility] [address], [place], [address], [facility] 05/20/2023 15:48:21 Date Recorded Body height Body mass index (BMI) Body weight Heart rate Oxygen saturation Oxygen saturation in Arterial blood by Pulse oximetry Body temperature Systolic blood pressure Diastolic blood pressure Provider Name and Address Organization Details Last Updated DateTime 165.1 cm 31.8 kg/m2 12078.1 4 g 80 /min 96 % 96 % 98.1 [degF] 126 mm[Hg] 70 mm[Hg] Evert Wick CMA [facility] 15:43:59 Date Recorded Heart rate Respiratory rate Provider N naz and Address Organization Details Last Updated DateTime 10/23/2023 80 /min 14 /min Rene Conley MD [address] [facility], [facility] [address], [place], [address], [facility] 10/23/2023 16:04:17 Date Recorded Body height Provider Name an d Address Organization Details Last Updated DateTime 01/07/2024 165.1 cm Love Jordan MA [facility] 01/07/2024 11:29:56 Date Recorded Body weight Body mass index (BMI) Oxygen saturation Oxygen saturation in Arterial blood by Pulse oximetry Provider Name and Address Organization Details Last Updated DateTime 01/07/2024 [id number]. [id number]|2024-07-01 00:11:00|2024-07-01 00:10:00|XMS_ITS|BKG DAEMON|External Medical Summaries|[id number]|" Data Portability Created on: July 01, 2024 Rowan Fuentes .[id number] : 1960 Sex: Female Author Organization [place] - [facility], [place], [place] Address [address] [place] [address] Assessment Encounter Date Assessment Date Assessment LastModified by Organization Details LastModified Time 11/06/2022 11/06/2022 Annual gynecological exam performed. Patient will come back in a year unless there are new symptoms. [email or web address] Not available 11/06/2022 12:10:32 Plan of Treatment Reminders Order Date Submit Date Provider Last Modified By Organization Details Last Modified Time Details Appointments None recorded. Lab None recorded. Referral None recorded. Procedures None recorded. Surgeries None recorded. Imaging DEXA, axial skeleton + vertebral fracture assessment [address], [address] [place] [address], [id number], 4 16:49:00 MAMMO, screening, digital, bilateral [address], [address] [place] [address], [id number], 4 16:49:00 Medication Orders None recorded. Patient TargetsNo targets recorded. Patient InstructionsNo instructions recorded. Reason for Referral None Reported. Problems Name Problem SNOMED Code Status Onset Date Resolution Date Notes Provider Name and Address Organization Details Recorded Time Finding of tobacco use and exposure Active 2014 Tobacco use;Record ed Elsewhere: No Locatio n: [facility] rce: EHR Chroni c: N Practice ID: 0001 Billa ble Time: 01:15:00 PM Not Available [employer] 0 16:07:17 Screening for malignant neoplasm of rectum Active 2017 Encounter for screening for malignant neoplasm of rectum;Rec orded Elsewhere: No Locatio n: [facility] [place] rce: EHR Chroni c: N Practice ID: 0001 Billa ble Time: 11:30:00 AM Not Available [employer] 0 16:07:17 Emotional state finding Active 2017 Anxiety depression ;Recorded Elsewhere: No Locatio n: [facility] rce: EHR Chroni c: N Practice ID: 0001 Billa ble Time: 11:30:00 AM Not Available [facility] 0 16:07:[address] Concept Active 2014 Encntr for news assistant exam (general) (routine) w/o abn findings;R ecorded Elsewhere: No Locatio n: [facility] rce: EHR Chroni c: N Practice ID: 0001 Billa ble Time: 01:15:00 PM Not Available [facility] 0 16:07:[address] Concept Active 2017 Encntr for general adult medical exam w/o abnormal findings;R ecorded Elsewhere: No Locatio n: [facility] rce: EHR Chroni c: N Practice ID: 0001 Billa ble Time: 11:30:00 AM Not Available [facility] 0 16:07:17 Problem Notes None recorded. Procedures Surgical History Date Name Laterality Status Provider Name and Address Organization Details Recorded Time Date of Last Pap Smear completed Cary Ayala [facility] 11/06/2022 12:12:07 Imaging Results None recorded. Procedure Notes None recorded. Medical Equipment None Reported. Allergies No known drug allergies Medications Name Sig Start Date Stop Date Status Note LastModified by Organization Details LastModified Time atorvasta tin 10 mg tablet take 1 tablet by oral route every day active Not Available Not Available No t Available azithromy arianna 250 mg tablet TAKE 2 TABLETS BY MOUTH TODAY, THEN TAKE 1 TABLET DAILY FOR 4 DAYS 11/06 completed Not Available Not Available Not Available clorazepa te dipotassi um 3.75 mg tablet take 1 tablet by oral route 2 times every day 11/06 completed Prescrib ed Elsewher e: Yes Loca tion: [facility] M odify By: yasmine zarco DateTime : 12/12/19 11:30:00 AM Not Available Not Available Not Available fluconazo le 150 mg tablet TAKE 1 TABLET BY MOUTH NOW AND IF SYMPTOMS NOT CLEAR IN 3 DAYS TAKE SECOND TABLET 11/06 completed Not Available Not Available Not Available Metrogel Vaginal 0.75 % (37.5 mg/5 gram) insert 1 applicat orful by vaginal route every day at bedtime 12/11 completed Prescrib ed Elsewher e: No Locat ion: [facility] odify By: yasmine Grider ncounter DateTime : 01/22/20 15 02:44:59 PM Not Available Not Available Not Available monteluka st 10 mg tablet active Not Available Not Available Not Available methylpre dnisolone 4 mg tablets in a dose pack TAKE 6 TABLETS ON DAY 1 DIRECTED ON PACKAGE AND DECREASE BY 1 TAB EACH DAY FOR A TOTAL OF 6 DAYS 11/06 completed Not Available Not Available Not Available albuterol sulfate HFA 90 mcg/actua tion aerosol inhaler INHALE 2 PUFFS BY MOUTH EVERY 4 HOURS active Not Available Not Available No t Available amoxicill in 875 mg-potass ium clavulana te 125 mg tablet TAKE 1 TABLET BY MOUTH EVERY 12 HOURS 11/06 completed Not Available Not Available Not Available monteluka st 4 mg oral granules in packet 11/06 completed Prescrib ed Elsewher e: Yes Loca tion: [facility] odify By: yasmine scottunter DateTime : 12/12/19 18 11:30:00 AM Not Available Not Available Not Available bupropion HCl XL 300 mg 24 hr tablet, extended release take 1 tablet by oral route every day active Not Available Not Available No t Available bupropion HCl (bulk) 100 % powder 12/11 completed Prescrib ed Elsewher e: Yes Loca tion: [facility] odify By: sharon [place] nter DateTime : 12/12/19 18 11:30:00 AM Not Available Not Available Not Available Cymbalta 20 mg capsule,d elayed release take 3 Capsule by oral route every day 12/11 completed Prescrib ed Elsewher e: Yes Loca tion: [facility] odify By: sharon Myers nter DateTime : 01/18/20 15 01:15:00 PM Not Available Not Available Not Available Paxlovid 300 mg (150 mg x 2)-100 mg tablets in a dose pack TAKE 2 TABLETS OF NIRMATRE LVIR WITH 1 TABLET OF RITONAVI R TOGETHER BY MOUTH TWICE A DAY FOR 5 DAYS 11/06 completed Not Available Not Available Not Available Vitals Date Recorded Body height Body mass index (BMI) Body weight Systolic blood pressure Diastolic blood pressure Provider Name and Address Organization Details Last Updated DateTime 11/06/2022 167.64 cm 33.5 kg/m2 64725.78 g 140 mm[Hg] 82 mm[Hg] Cary Ayala [facility] 12:30:59 Social History Question Answer Notes LastModified by Organizat ion Details LastModified Time Tobacco Smoking Status Current Every Day Smoker Cary Ayala [facility] 11/06/2022 12:14:24 Are You Blind Or Do You Have Difficulty Seeing? No Information not available 11/06/2022 Are You Deaf Or Do You Have Serious Difficulty Hearing? No Information not available 11/06/2022 Sex: Unknown Functional Status Question Answer Note LastModified by Organizat ion Details LastModified Time What is your level of alcohol consumption? Occasional Information not available 11/06/2022 Do you have difficulty walking or climbing stairs? No Information not available 11/06/2022 Are you able to walk? YESWOREST Information not available 11/06/2022 Are you able to care for yourself? Yes Information not available 11/06/2022 Do you have difficulty dressing or bathing? No Information not available 11/06/2022 Mental Status None recorded. Family History Nothing Reported Notes:Maternal aunt: Tubercu losis Maternal grandmother: Tuberculosis Mother: Cancer, lung, Hyperlipidemia Paternal grandmother: Congenital heart disease Medical History Condition Response Other Y Blood Transfusion N Dermatologic Disorders N Gestational Diabetes N Anxiety Disorder N Autoimmune disease N Arthritis N Polyps N Infertility N Acid Reflux (GERD) N Cancer N Varicosities N Stroke N Neurologic/Epilepsy N Fibromyalgia N Headaches N Kidney Disease N Heart Problems N Kidney or Bladder Problems N Eating Disorder N Art (IVF or FET) N Hepatitis/Liver Disease N No Past Medical History N Urinary Tract Infection N Asthma N Trauma/Violence N Thrombophilias N Allergies (Food, seasonal, environmental ) Y Breast Cancer N Drug/Latex Allergies/Reactions N Lung Disease Y Defects or Inherited Disease N Breast Problem N Hematologic disorders N Anesthesia Complications N History of STI N Deep Vein Thrombosis N Polycystic ovary syndrome N History of abnormal pap N Endometriosis N High Cholesterol Y Thyroid Problems N GI Problems N Anemia N Psychiatric Illness N Ovarian Cancer N Diabetes N Pulmonary (TB, Asthma) N Eczema N Abuse/Domestic Violence N Depression/ depression Y Heart Disease N Pre-Eclampsia N Hypertension N Osteoporosis N Gynecological History Statement/Question Response STIs/STDs N Age of first menstrual cycle 16 HPV Vaccine N Date of Last Pap Smear 12/11/2017 Sexual Problems? Y Current Control Method Menopause LMP Unknown Sexually Active? Y Obstetrics History GPAL:G 2 P 0 0 0 2 Type Value Living 2 Total 2 Past Encounters Encounter ID Performer Location Encounter Start Date Encounter Closed Date Diagnosis/Indication Diagnosis SNOMED-CT Code Diagnosis ICD10 Code Diagnosis Note [id number] ROCAEL Lantigua [place] [address] [address] 11/06/2022 11:27:31 11/06/2022 12:36:50 Gynecologic examination [id number] Z01.419 Take Calcium with Vitamin D daily. Do monthly self breast exams. It is advised to get annual flu shot in the fall and she could obtain at [facility] or [facility]. If you haven't received the Tdap vaccine in the last 10 years you should obtain one as well. Have mammogram yearly, bone density every 2-3 years and colonoscop y every 5-10 years depending on findings and history. Engage in daily exercise of low impact aerobic exercise 45-60 minutes 4-5 times weekly. Avoid tobacco and illicit drugs as well as using moderation with alcohol intake less than 1-2 8 oz beverages daily. This lifestyle behavior pattern will lead to less health conditions and longer life span. If BMI greater than 25 weight watchers or dietary consult advised. Questions have been answered. Patient appears to understand instructio ns, but if you have any further questions call or respond to this email WWEpost[employer] opausallas t pap 2018 - normalpap updated todaySTI testing declinedma mmogram order given - encouraged to schedulede xa order given - encouraged to scheduleco lonoscopy - has order from PCPUTD with PCP for routine labssmokin g cessation discussed and encouraged RTC in 1 year or sooner if needed BP elevated, precaution s discussed. Encouraged f/u with PCP Screening for malignant neoplasm of breast 120714884 Z12.39 Screening for osteoporosis 937877474 Z13.820 Health Concerns Section Related Observation LastModified by Organization Detai ls LastModified Time None Recorded Concern Status LastModified by Organization Details LastModified Time None Recorded Advance Directives Directive None Recorded Payers Encounter Date Sequence Insurance Name Policy Number Policy Garcia Covered Member ID Garcia Member ID Guarantor Name 11/06/2022 1 [place] [id number] Mamadou Fuentes [id number] Rowan Fuentes Notes Date Note Type Note Provider Name and Address Organization Details Recorded Time 11/06/2022 text/html Annual Casing Splitter Post-MenopausalRepor ye bypatient.Menopausal Symptoms:no menopausal symptoms; normal vaginal lubrication; postmenopausal x 10 years Vaginal Bleeding:history of menopause having occurred; no history of post menopausal bleeding Urinary Symptoms:no hematuria; no incontinence; no nocturia; no urinary frequency Vulva:no genital lesion; no vulvar atrophy Vagina:normal vaginal discharge; no vaginal atrophy Breast:no breast lump; no nipple discharge; no breast pain Sexual Complaints:no sexual complaints Psychological Symptoms:no depression; no anxiety Preventive Measures:encourage regular mammograms starting age 40; encourage self breast examination; encourage regular exercise; encourage no tobacco use; needs to schedule mammogram; needs to schedule colonoscopy; needs to schedule bone density ROCAEL Lantigua [address], [place], [address], [facility] 11/06/2022 12:32:14 OBGyn Episode Ob Episode Information Episode Created Date Number of Fetuses Patient Bloodtype Patient rh Status Prepregnancy Weight lbs Domestic Partner Domestic Partner Phone Father Name Brand Sales Manager Status 11/07/19 23 1 CLOSED Fetus Data First Name Last Name Admitted to NICU Weight (g) Sex Living Outcome Pediatric Complications Fetus ID Race Codes Race Delivery Type [phone] [id number] Vaginal Delivery Eric Calculation Initial Eric Date Initial Exam Date Initial Exam Provider Initial Ultrasound Date Last Menstrual Period Date Ultra Sound Weeks Gestation 0 Eighteen To Twenty Week Eric Update Ultra Sound Date Fundal Height At Umbil Quickening Date Ultra Sound Latest Weeks Gestation Final Eric Confirmed By Final Eric Confirmed Date Final Eric Date Ultra Sound Latest Days Gestation 0 0 Menstrual History Last Menstrual Date Menses Monthly On Bcp Conception Prior Menses Frequency Hcg Plus Date Menarche Onset Age Delivery Information Delivery Date Delivery Type Labor Anesthesia Weeks Gestation Incision Type Labor Labor Length Hrs Delivered By Post Complications Tubal Sterilization Discharge Date Comments 9 Discharge Information Feeding Method Contraceptive Method Maternal HG B and HCT Levels Ob Episode Information Episode Created Date Number of Fetuses Patient Bloodtype Patient rh Status Prepregnancy Weight lbs Domestic Partner Domestic Partner Phone Father Name Brand Sales Manager Status 11/07/19 23 1 CLOSED Fetus Data First Name Last Name Admitted to NICU Weight (g) Sex Living Outcome Pediatric Complications Fetus ID Race Codes Race Delivery Type [phone] [id number] Vaginal Delivery Eric Calculation Initial Eric Date Initial Exam Date Initial Exam Provider Initial Ultrasound Date Last Menstrual Period Date Ultra Sound Weeks Gestation 0 Eighteen To Twenty Week Eric Update Ultra Sound Date Fundal Height At Umbil Quickening Date Ultra Sound Latest Weeks Gestation Final Eric Confirmed By Final Eric Confirmed Date Final Eric Date Ultra Sound Latest Days Gestation 0 0 Menstrual History Last Menstrual Date Menses Monthly On Bcp Conception Prior Menses Frequency Hcg Plus Date Menarche Onset Age Delivery Information Delivery Date Delivery Type Labor Anesthesia Weeks Gestation Incision Type Labor Labor Length Hrs Delivered By Post Complications Tubal Sterilization Discharge Date Comments 3 Discharge Information Feeding Method Contraceptive Method Maternal HG B and HCT Levels "
--- OUTSIDE RECORDS SUMMARY | 2024-07-01 00:11 | XMS_ITS | Clinical Summary ---
Author Organization [facility] Address [address] [place] [id number] Care Team Providers Care Child Welfare Counselor Name Role Phone Unavailable Primary Care Provider Unavailabl e Social History Tobacco Use Types Packs/Day Years Used Date Smoking Tobacco: Never Assessed Comments No Sex and Gender Information Value Date Recorded Sex Assigned at Not on file Legal Sex Female 12:04 PM CDT Gender Identity Not on file Sexual Orientation Not on file Obstetrics History Para Term AB IAB SAB Ectopic Multiple Livin g Live Births 2 2 2 Date Outcome GA Total Labor Labor/2nd/3rd Weight Sex Type Anes PTL Yamile A1 A5 Name Clin Term Term Last Filed Vital Signs Vital Sign Reading [...] 06/17/2020 1:44 PM CDT Plan of Treatment Health Maintenance Due Date Last Done Comments Cervical Cancer Screening 1962 Colon Cancer Screening-Colonoscopy 1962 Depression Screening 1962 Hepatitis C Screening 1962 Hepatitis B Screening 1980 Regular Well Visit/Exam 18-64 1980 Pneumococcal vaccine <65 (1 of 2 - PCV) 1981 Zoster Vaccine (1 of 2) 2012 Influenza Vaccine (Season Ended) 2024 Breast Cancer Screening-Mammogram 12/02/2024 024, 07/30/2020 DTaP/Tdap/Td Vaccine (2 - Td or Tdap) 05/08/2032 Procedures Procedure Name Priority Date/Time Associated Diagnosis [...] age 40, based on guidelines of the [employer] (ACR Practice Parameter for the Performance of Screening and Diagnostic Mammography) and [employer]. For women [...]
--- OUTSIDE RECORDS SUMMARY | 2024-07-01 00:11 | XMS_ITS | Encounter Summary ---
Author Organization [facility] Address [address] [place] [address] Care Team Providers Care Roll Examiner Name Role Phone Unavailable Primary Care Provider Unavailabl e Prior Encounters Date Type Department Care Team Description 03/09/2019 Converted 13x Documents [facility] [address] [place] [address] <No scans attached> Plan of Treatment Not on file Visit Diagnoses Not on file
--- OUTSIDE RECORDS SUMMARY | 2024-07-01 00:11 | XMS_ITS | Clinical Summary ---
Author Organization [facility] Address [address] [place] [address] Phone Care Team Providers Care Switchboard Wirer Name Role Phone Anita Reveles APRN, JOHN Primary Care Provider Allergies No known active allergies Medications buPROPion (WELLBUTRIN) 300 MG TABLET SR 24 HR XL tablet Take 300 mg by mouth every morning. Active montelukast (SINGULAIR) 10 MG Tablet Take 10 mg by mouth daily. Active MAGNESIUM LACTATE PO Take 1 Tablet by mouth 4 times daily. Active [facility] [place]-3 Krill Oil 500 MG Capsule Take 3 Capsules by mouth every evening. Active B COMPLEX-C ER PO Take 1 Tablet by mouth daily. Active Multiple Vitamins-Minera ls (MULTIPLE VITAMINS/WOMENS PO) Take 2 Tablets by mouth daily. CHEWIES Active FIBER SELECT GUMMIES PO Take 2 Tablets by mouth daily. GUMMIES Active traMADol (ULTRAM) 50 MG TabletIndicatio ns:Bunionette of left foot Take 1 Tablet by mouth every 6 hours as needed for Moderate or more severe pain. 15 Tablet 02/13/2023 Active Active Problems Problem Noted Date Diagnosed Date Bunionette of left foot 02/13/2023 Family History Medical History Relation Name Comments Cancer Father myoblast lukemi a Cancer Mother lung High Cholesterol Mother Relation Name Status Comments Father Mother Social History Tobacco Use Types Packs/Day Years Used Date Smoking Tobacco: Every Day Cigarettes Smokeless Tobacco: Never Tobacco Cessation:Ready to Q uit: Yes; Counseling Given: Yes Alcohol Use Standard Drinks/Week Comments Yes 1 (1 standard drink = 0.6 oz pur e alcohol) 1 wine or mixed drink monthly Comments Unknown Sex and Gender Information Value Date Recorded Sex Assigned at Not on file Legal Sex Female 9:14 PM CDT Gender Identity Not on file Sexual Orientation Not on file Last Filed Vital Signs Vital Sign Reading Time Taken Comments Blood Pressure 140/65 02/13/2023 9:12 AM BELLOWS CHARGER ASSEMBLER Pulse 60 02/13/2023 9:12 AM BELLOWS CHARGER ASSEMBLER Temperature 35.7 C (96.3 F) 02/13/2023 9:12 AM BELLOWS CHARGER ASSEMBLER Respiratory Rate 16 02/13/2023 9:12 AM BELLOWS CHARGER ASSEMBLER Oxygen Saturation 100% 02/13/2023 9:12 AM BELLOWS CHARGER ASSEMBLER Inhaled Oxygen Concentration - - Weight 90.2 kg (198 lb 12.8 oz) 02/13/2023 5:52 AM BELLOWS CHARGER ASSEMBLER Height 167.6 cm (5' 6 ) 02/13/2023 5:52 AM BELLOWS CHARGER ASSEMBLER Body Mass Index 32.09 02/13/2023 5:52 AM BELLOWS CHARGER ASSEMBLER Plan of Treatment Health Maintenance Due Date Last Done Comments Hepatitis C Virus (HCV) Screening 1962 Pneumococcal Immunization (5 0+ years) (1 of 2 - PCV) 1981 Pap Smear 04/21/1983 Cervical Cancer Screening (CCS) 1992 HPV/Cotest 1992 Colonoscopy 04/21/2007 Colorectal Cancer Screening 04/21/2007 Cologuard 2012 Immunochemical Fecal Occult Blood 2012 Zoster Immunization (1 of 2) 2012 Mammogram 07/30/2021 07/30/2020 Influenza Immunization (#1) 2023 SARS-COV-2 Immunization ( season) 2023 04/28/2020 Respiratory Syncytial Virus (RSV) Immunization (Adult) (1 - 1-dose 75+ series) 2037 DTaP/Tdap/Td Immunization Discontinued 2022, 02/19/2008 TdaP Immunization Completed 05/08/2022, 02/19/2008 Hepatitis B Immunization Aged Out No longer eligible based on patient's age to complete this topic Meningococcal Immunization (ACWY) Aged Out No longer eligible based on patient's age to complete this topic Rotavirus Immunization Aged Out No lo nger eligible based on patient's age to complete this topic Insurance Care Teams Switchboard Wirer Relationship Specialty Start Date End Date Anita Reveles, SECURITY BUSINESS ANALYST, [employer] [id number] [phone] PCP - General Advanced Practice Nurse 02/08/23
--- OUTSIDE RECORDS SUMMARY | 2024-07-01 00:12 | XMS_ITS | Patient Health Record ---
Author Organization [facility] [employer] Address [address] [place] [address] Care Team Providers Care Talent Acquisition Manager Name Role Phone Love Multani Unavailable [phone] Migration, Provider Unavailable Unavailable Allergies No Known Allergies Reason For Referral No Information Medications Medication SIG (Take, Route, Frequency, Duration) Notes Start Date End Date Status Montelukast Sodium 10 MG Oral 07/09/2023 Active buPROPion HCl ER (XL) 300 MG 1 tablet in the morning Oral Once a day for 90 days Active Atorvastatin Calcium 10 MG TAKE 1 TABLET DAILY Oral for 90 Days E785,HYPERLIPIDEMIA , UNSPECIFIED Active KRILL OIL (OMEGA 3 AND 6) *Reorder from WhenSoon for eRx and Interaction Alerts* 07/09/2023 Active ProAir HFA 108 (90 Base) MCG/ACT Inhalation 07/09/2023 Active Immunizations Vaccine Route Administration Date Status Comme nts Tdap Unknown 02/19/2008 Administered Melissa Covid-19 Vaccine Unknown 04/28/2020 Administere d Social History Sex Assigned At : Social History Observation Description Sex Assigned At Female Problems Problem Type SNOMED Code ICD Code Onset Dates Problem Status W/U Status Risk Notes Problem Tobacco user (304175900) Nicotine dependence, unspecified, uncomplicated (F17.200) 07/09/19 24 Active confirmed Problem Mild recurrent major depression (72384200) Major depressive disorder, recurrent, mild (F33.0) 07/09/19 Active confirmed Problem Generalized anxiety disorder (48912026) Generalized anxiety disorder (F41.1) 07/09/19 Active confirmed Problem Posttraumatic stress disorder (02642126) Post-traumatic stress disorder, chronic (F43.12) 06/25/19 19 Active confirmed Problem Long-term current use of drug therapy (040717801) 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) 07/25/19 19 Active confirmed Vital Signs Heart Rate 60 /min 06/09/2024 Height-cm 167.64 cm 06/09/2024 Blood pressure diastolic 85 mm Hg 06/09/2024 Weight-kg 86.68 kg 06/09/2024 Height 66.00 in 06/09/2024 Blood pressure systolic 137 mm Hg 06/09/2024 Weight 191.1 lbs 06/09/2024 BMI 30.84 kg/m2 06/09/2024 Encounters Encounter Location Date Provider Diagnosis [address] [address] 07/09/2023 Love Multani Major depressive disorder, recurrent, mild F33.0 ; Adjustment disorder with anxiety F43.22 ; Generalized anxiety disorder F41.1 and Nicotine dependence, unspecified, uncomplicated F17.[address] [address] 12/10/2023 Love Multani Major depressive disorder, recurrent, mild F33.0 ; Generalized anxiety disorder F41.1 ; Nicotine dependence, unspecified, uncomplicated F17.200 ; Post-traumatic stress disorder, chronic F43.12 and Other assistant terminal manager (current) drug therapy Z79.[address] [address] 06/09/2024 Love Multani Nicotine use Z72.0 ; Major depressive disorder, recurrent, mild F33.0 ; Generalized anxiety disorder F41.1 ; Nicotine dependence, unspecified, uncomplicated F17.200 ; Post-traumatic stress disorder, chronic F43.12 ; Other residential (current) drug therapy Z79.899 and Encounter for screening for depression Z13.[address] [address] 07/06/2023 Provider Migration [address] [address] 07/07/2023 Provider Migration Assessments Encounter Date Diagnosis (ICD Code) Assessment Notes Treatment Notes Treatment Clinical Notes Section Notes 07/09/2023 Nicotine dependence, unspecified, uncomplicated (ICD-10 - F17.200) 07/09/2023 Major depressive disorder, recurrent, mild (ICD-10 - F33.0) 07/09/2023 Generalized anxiety disorder (ICD-10 - F41.1) 07/09/2023 Adjustment disorder with anxiety (ICD-10 - F43.22) 06/09/2024 Nicotine use (ICD-10 - Z72.0) Depression- Wellbutrin XL 300 mg daily in am Anxiety educated on all medications, benefits, side effects and risk, and educated on depression, anxiety, and ADHD, mood d/o and educated on compliance of medications, metabolic and movement d/o education appointment is, continue therapy discussion with patient about course of treatment and patient instructions. education on serotonin syndrome SSRI/SNRI side effects discussed including but not limited to, gastric upset, nausea, vomiting, diarrhea and/or constipation, weight changes, sexual side effects including loss of libido, increased suicidal thoughts/behavio rs in children and young adults, and serotonin syndrome. Patient educated on all medications including potential benefits, side effects, risks. Educated on proper dosing schedule and importance of compliance Medication Management and Follow-Up - Plan: - Schedule follow-up appointments every 3-6 months to monitor the patient's response to the medication regimen. - Reinforce the importance of avoiding recreational drug use due to potential neurotoxicity and interactions with prescribed medications. 12/10/2023 Major depressive disorder, recurrent, mild (ICD-10 - F33.0) Preventing Depression From Coming Back: Care Instructions material was published, Learning About How to Get Help During a Mental Health Crisis material was published, Learning About Depression material was published, Seasonal Affective Disorder: Care Instructions material was published Depression- Wellbutrin XL 300 mg daily in am Anxiety educated on all medications, benefits, side effects and risk, and educated on depression, anxiety, and ADHD, mood d/o and educated on compliance of medications, metabolic and movement d/o education appointment is, continue therapy discussion with patient about course of treatment and patient instructions. education on serotonin syndrome SSRI/SNRI side effects discussed including but not limited to, gastric upset, nausea, vomiting, diarrhea and/or constipation, weight changes, sexual side effects including loss of libido, increased suicidal thoughts/behavio rs in children and young adults, and serotonin syndrome. Patient educated on all medications including potential benefits, side effects, risks. Educated on proper dosing schedule and importance of compliance Medication Management and Follow-Up - Plan: - Schedule follow-up appointments every 3-6 months to monitor the patient's response to the medication regimen. - Reinforce the importance of avoiding recreational drug use due to potential neurotoxicity and interactions with prescribed medications. 12/10/2023 Generalized anxiety disorder (ICD-10 - F41.1) Generalized Anxiety Disorder: Care Instructions material was published, Learning About Generalized Anxiety Disorder material was published, Learning About Anxiety Disorders material was published Depression- Wellbutrin XL 300 mg daily in am Anxiety educated on all medications, benefits, side effects and risk, and educated on depression, anxiety, and ADHD, mood d/o and educated on compliance of medications, metabolic and movement d/o education appointment is, continue therapy discussion with patient about course of treatment and patient instructions. education on serotonin syndrome SSRI/SNRI side effects discussed including but not limited to, gastric upset, nausea, vomiting, diarrhea and/or constipation, weight changes, sexual side effects including loss of libido, increased suicidal thoughts/behavio rs in children and young adults, and serotonin syndrome. Patient educated on all medications including potential benefits, side effects, risks. Educated on proper dosing schedule and importance of compliance Medication Management and Follow-Up - Plan: - Schedule follow-up appointments every 3-6 months to monitor the patient's response to the medication regimen. - Reinforce the importance of avoiding recreational drug use due to potential neurotoxicity and interactions with prescribed medications. 06/09/2024 Major depressive disorder, recurrent, mild (ICD-10 - F33.0) Preventing Depression From Coming Back: Care Instructions material was published, Learning About How to Get Help During a Mental Health Crisis material was published, Learning About Depression material was published, Seasonal Affective Disorder: Care Instructions material was published Depression- Wellbutrin XL 300 mg daily in am Anxiety educated on all medications, benefits, side effects and risk, and educated on depression, anxiety, and ADHD, mood d/o and educated on compliance of medications, metabolic and movement d/o education appointment is, continue therapy discussion with patient about course of treatment and patient instructions. education on serotonin syndrome SSRI/SNRI side effects discussed including but not limited to, gastric upset, nausea, vomiting, diarrhea and/or constipation, weight changes, sexual side effects including loss of libido, increased suicidal thoughts/behavio rs in children and young adults, and serotonin syndrome. Patient educated on all medications including potential benefits, side effects, risks. Educated on proper dosing schedule and importance of compliance Medication Management and Follow-Up - Plan: - Schedule follow-up appointments every 3-6 months to monitor the patient's response to the medication regimen. - Reinforce the importance of avoiding recreational drug use due to potential neurotoxicity and interactions with prescribed medications. 12/10/2023 Nicotine dependence, unspecified, uncomplicated (ICD-10 - F17.200) Deciding About Using Medicines To Quit Smoking material was published, Learning About Benefits of Quitting Smoking material was published, Quitting Tobacco: Care Instructions material was published, Stopping Smokeless Tobacco Use: Care Instructions material was published Depression- Wellbutrin XL 300 mg daily in am Anxiety educated on all medications, benefits, side effects and risk, and educated on depression, anxiety, and ADHD, mood d/o and educated on compliance of medications, metabolic and movement d/o education appointment is, continue therapy discussion with patient about course of treatment and patient instructions. education on serotonin syndrome SSRI/SNRI side effects discussed including but not limited to, gastric upset, nausea, vomiting, diarrhea and/or constipation, weight changes, sexual side effects including loss of libido, increased suicidal thoughts/behavio rs in children and young adults, and serotonin syndrome. Patient educated on all medications including potential benefits, side effects, risks. Educated on proper dosing schedule and importance of compliance Medication Management and Follow-Up - Plan: - Schedule follow-up appointments every 3-6 months to monitor the patient's response to the medication regimen. - Reinforce the importance of avoiding recreational drug use due to potential neurotoxicity and interactions with prescribed medications. 06/09/2024 Generalized anxiety disorder (ICD-10 - F41.1) Generalized Anxiety Disorder: Care Instructions material was published, Learning About Generalized Anxiety Disorder material was published, Learning About Anxiety Disorders material was published Depression- Wellbutrin XL 300 mg daily in am Anxiety educated on all medications, benefits, side effects and risk, and educated on depression, anxiety, and ADHD, mood d/o and educated on compliance of medications, metabolic and movement d/o education appointment is, continue therapy discussion with patient about course of treatment and patient instructions. education on serotonin syndrome SSRI/SNRI side effects discussed including but not limited to, gastric upset, nausea, vomiting, diarrhea and/or constipation, weight changes, sexual side effects including loss of libido, increased suicidal thoughts/behavio rs in children and young adults, and serotonin syndrome. Patient educated on all medications including potential benefits, side effects, risks. Educated on proper dosing schedule and importance of compliance Medication Management and Follow-Up - Plan: - Schedule follow-up appointments every 3-6 months to monitor the patient's response to the medication regimen. - Reinforce the importance of avoiding recreational drug use due to potential neurotoxicity and interactions with prescribed medications. 12/10/2023 Post-traumatic stress disorder, chronic (ICD-10 - F43.12) Post-Traumatic Stress Disorder (PTSD): Care Instructions material was published Depression- Wellbutrin XL 300 mg daily in am Anxiety educated on all medications, benefits, side effects and risk, and educated on depression, anxiety, and ADHD, mood d/o and educated on compliance of medications, metabolic and movement d/o education appointment is, continue therapy discussion with patient about course of treatment and patient instructions. education on serotonin syndrome SSRI/SNRI side effects discussed including but not limited to, gastric upset, nausea, vomiting, diarrhea and/or constipation, weight changes, sexual side effects including loss of libido, increased suicidal thoughts/behavio rs in children and young adults, and serotonin syndrome. Patient educated on all medications including potential benefits, side effects, risks. Educated on proper dosing schedule and importance of compliance Medication Management and Follow-Up - Plan: - Schedule follow-up appointments every 3-6 months to monitor the patient's response to the medication regimen. - Reinforce the importance of avoiding recreational drug use due to potential neurotoxicity and interactions with prescribed medications. 12/10/2023 Other assistant terminal manager (current) drug therapy (ICD-10 - Z79.899) Medication Refill: Care Instructions material was published Depression- Wellbutrin XL 300 mg daily in am Anxiety educated on all medications, benefits, side effects and risk, and educated on depression, anxiety, and ADHD, mood d/o and educated on compliance of medications, metabolic and movement d/o education appointment is, continue therapy discussion with patient about course of treatment and patient instructions. education on serotonin syndrome SSRI/SNRI side effects discussed including but not limited to, gastric upset, nausea, vomiting, diarrhea and/or constipation, weight changes, sexual side effects including loss of libido, increased suicidal thoughts/behavio rs in children and young adults, and serotonin syndrome. Patient educated on all medications including potential benefits, side effects, risks. Educated on proper dosing schedule and importance of compliance Medication Management and Follow-Up - Plan: - Schedule follow-up appointments every 3-6 months to monitor the patient's response to the medication regimen. - Reinforce the importance of avoiding recreational drug use due to potential neurotoxicity and interactions with prescribed medications. 06/09/2024 Nicotine dependence, unspecified, uncomplicated (ICD-10 - F17.200) Deciding About Using Medicines To Quit Smoking material was published, Learning About Benefits of Quitting Smoking material was published, Quitting Tobacco: Care Instructions material was published, Stopping Smokeless Tobacco Use: Care Instructions material was published Depression- Wellbutrin XL 300 mg daily in am Anxiety educated on all medications, benefits, side effects and risk, and educated on depression, anxiety, and ADHD, mood d/o and educated on compliance of medications, metabolic and movement d/o education appointment is, continue therapy discussion with patient about course of treatment and patient instructions. education on serotonin syndrome SSRI/SNRI side effects discussed including but not limited to, gastric upset, nausea, vomiting, diarrhea and/or constipation, weight changes, sexual side effects including loss of libido, increased suicidal thoughts/behavio rs in children and young adults, and serotonin syndrome. Patient educated on all medications including potential benefits, side effects, risks. Educated on proper dosing schedule and importance of compliance Medication Management and Follow-Up - Plan: - Schedule follow-up appointments every 3-6 months to monitor the patient's response to the medication regimen. - Reinforce the importance of avoiding recreational drug use due to potential neurotoxicity and interactions with prescribed medications. 06/09/2024 Post-traumatic stress disorder, chronic (ICD-10 - F43.12) Post-Traumatic Stress Disorder (PTSD): Care Instructions material was published Depression- Wellbutrin XL 300 mg daily in am Anxiety educated on all medications, benefits, side effects and risk, and educated on depression, anxiety, and ADHD, mood d/o and educated on compliance of medications, metabolic and movement d/o education appointment is, continue therapy discussion with patient about course of treatment and patient instructions. education on serotonin syndrome SSRI/SNRI side effects discussed including but not limited to, gastric upset, nausea, vomiting, diarrhea and/or constipation, weight changes, sexual side effects including loss of libido, increased suicidal thoughts/behavio rs in children and young adults, and serotonin syndrome. Patient educated on all medications including potential benefits, side effects, risks. Educated on proper dosing schedule and importance of compliance Medication Management and Follow-Up - Plan: - Schedule follow-up appointments every 3-6 months to monitor the patient's response to the medication regimen. - Reinforce the importance of avoiding recreational drug use due to potential neurotoxicity and interactions with prescribed medications. 06/09/2024 Other residential (current) drug therapy (ICD-10 - Z79.899) Medication Refill: Care Instructions material was published Depression- Wellbutrin XL 300 mg daily in am Anxiety educated on all medications, benefits, side effects and risk, and educated on depression, anxiety, and ADHD, mood d/o and educated on compliance of medications, metabolic and movement d/o education appointment is, continue therapy discussion with patient about course of treatment and patient instructions. education on serotonin syndrome SSRI/SNRI side effects discussed including but not limited to, gastric upset, nausea, vomiting, diarrhea and/or constipation, weight changes, sexual side effects including loss of libido, increased suicidal thoughts/behavio rs in children and young adults, and serotonin syndrome. Patient educated on all medications including potential benefits, side effects, risks. Educated on proper dosing schedule and importance of compliance Medication Management and Follow-Up - Plan: - Schedule follow-up appointments every 3-6 months to monitor the patient's response to the medication regimen. - Reinforce the importance of avoiding recreational drug use due to potential neurotoxicity and interactions with prescribed medications. 06/09/2024 Encounter for screening for depression (ICD-10 - Z13.31) Depression- Wellbutrin XL 300 mg daily in am Anxiety educated on all medications, benefits, side effects and risk, and educated on depression, anxiety, and ADHD, mood d/o and educated on compliance of medications, metabolic and movement d/o education appointment is, continue therapy discussion with patient about course of treatment and patient instructions. education on serotonin syndrome SSRI/SNRI side effects discussed including but not limited to, gastric upset, nausea, vomiting, diarrhea and/or constipation, weight changes, sexual side effects including loss of libido, increased suicidal thoughts/behavio rs in children and young adults, and serotonin syndrome. Patient educated on all medications including potential benefits, side effects, risks. Educated on proper dosing schedule and importance of compliance Medication Management and Follow-Up - Plan: - Schedule follow-up appointments every 3-6 months to monitor the patient's response to the medication regimen. - Reinforce the importance of avoiding recreational drug use due to potential neurotoxicity and interactions with prescribed medications. 12/10/2023 Other Bupropion Extended Release Oral Tablet (BUPROPION HCL EXTENDED-RELEAS E (ANTIDEPRESSANT ) - ORAL) material was published Depression- Wellbutrin XL 300 mg daily in am Anxiety educated on all medications, benefits, side effects and risk, and educated on depression, anxiety, and ADHD, mood d/o and educated on compliance of medications, metabolic and movement d/o education appointment is, continue therapy discussion with patient about course of treatment and patient instructions. education on serotonin syndrome SSRI/SNRI side effects discussed including but not limited to, gastric upset, nausea, vomiting, diarrhea and/or constipation, weight changes, sexual side effects including loss of libido, increased suicidal thoughts/behavio rs in children and young adults, and serotonin syndrome. Patient educated on all medications including potential benefits, side effects, risks. Educated on proper dosing schedule and importance of compliance Medication Management and Follow-Up - Plan: - Schedule follow-up appointments every 3-6 months to monitor the patient's response to the medication regimen. - Reinforce the importance of avoiding recreational drug use due to potential neurotoxicity and interactions with prescribed medications. Plan Of Treatment Next Appt Details Provider Name:Love Multani , 12/01/2024 11:00:00 AM, [address] [facility] [address], [place], [address], Insurance Providers Payer Name Payer Address Payer Phone Subscriber Number Group Number Insured Name Patient Relationship to Insured Coverage Start Date Coverage End Date [employer] [address] [place] [address] [id number] OLIVIA RUDOLPH Self - patient is the insured Medical (General) History Medical History History ICD Code Problems: Adjustment disorder Generalized anxiety disorder Mild recurrent major depression Moderate recurrent major depression Nicotine dependence ,
[2024-07-01 06:00] VITALS: BP 130/71; PULSE 67; RESP 18; TEMP 36.4; O2SAT 95
[2024-07-01 06:11] VITALS: BMI 31.2
[2024-07-01] MEDS: LACTATED RINGERS 1,000 ML 30 ML IV CONT (06:25)
--- NOTE | 2024-07-01 06:59 | WPDHPUPDATE1 ---
History and Physical Update Update Date/Time: 07/01/24 06:59 History and Physical has been reviewed, including an updated exam of the patient. There are NO changes in the patient's condition. Risks, benefits, and alternatives have been discussed and questions answered. Patient agrees to proceed with procedure.
--- NOTE | 2024-07-01 07:23 | P.PNAN_ITS ---
Anes - Initial Pre Proc Eval Procedure: Operation Date: 07/01/24 07:30 Proposed Procedures p Excision of Subcutaneous Mass Right Upper Arm - Mahesh Ellison MD Date/Time: 07/01/24 07:23 Surgeon: Mahesh Ellison MD Pre Op Diagnosis: subcutaneous mass right arm Patient Data Age: 64 Gender: F Height: 1.68 m Weight: 87.8 kg Last Vital Signs Temp 97.6 F 07/01/24 06:00 Pulse 67 07/01/24 06:00 Resp 18 07/01/24 06:00 BP 130/71 07/01/24 06:00 Pulse Ox 95 07/01/24 06:00 O2 Del Method Room Air 07/01/24 06:00 Allergies Allergy/AdvReac Type Severity Reaction Status Date / Time amitriptyline Allergy Unknown Swelling Verified 07/01/24 06:31 Home Medications Medication Instructions Recorded Confirmed Type atorvastatin 10 mg tablet 10 mg PO DAILY 02/17/24 07/01/24 History bupropion HCl 300 mg 24 hr tablet, 300 mg PO QAM 02/17/24 07/01/24 History extended release magnesium 250 mg tablet 250 mg PO DAILY 02/17/24 07/01/24 History omega-3 339 mg-dha and epa 314 2 cap PO HS 02/17/24 07/01/24 History mg-fish and krill oil 500 mg capsule Patient hx anesthesia problems: none Family hx anesthesia problems: none Results Review: All pre-operative results and documents have been reviewed as part of the pre- operative evaluation. [facility] Past Medical History Medical History GERD (gastroesophageal reflux disease) COPD (chronic obstructive pulmonary disease) Anxiety Hyperlipidemia Asthma Surgical History Surgical History Hx of rotator cuff surgery 2017 Family History Family History Other Asthma Cancer Depression Social History Social History (Updated 06/04/24 @ 10:13 by Shae Randolph MA) Years smoked: 25 Smoking status: Smoker, status unknown Tobacco type: cigarettes Alcohol intake: former Do You Feel Safe in your Home?: Yes Lack of Transportation: No Lack of Food: Never True Current Housing: I Have Housing Concerned About Future Housing: No Difficulty Paying Gas/Electric Bills: No Difficulty Paying for Meds: No Currently Unemployed: No Education: High School Diploma/GED Difficulty w/ Childcare or Family Care: Decline to Answer Living arrangements: with family Occupation/Education: occupation Spiritual care concerns: No Anes - Eval Final PreProcedure Day of Procedure 07/01/24 07:23 Patient weight: obese Heart: regular rate and rhythm Lungs: clear to auscultation Airway: Mallampati scale class II Neurological: alert and oriented Last oral intake: >/= 8 hours ASA classification: III Emergent: no Anesthetic plan: proceed Anesthesia type and monitoring: general GIVS and standard monitoring Results Review: All pre-operative results and documents have been reviewed as part of the pre- operative evaluation. Informed Consent: The patient's anesthetic plan and its attendant risks and benefits were discussed with the patient/family/POA. Questions were solicited and answers provided to the satisfaction of the patient/family/POA.
[2024-07-01] MEDS: ceFAZolin 2 GM/D5W 50 ML 2 GM/50 ML BAG IVPB (07:30)
[2024-07-01] MEDS: BUPIVACAINE/EPINEPHRINE 0.5% 50 ML VIAL 30 ML INFILTRATE (07:45)
[2024-07-01 08:10] VITALS: BP 109/46; PULSE 64; RESP 12; O2SAT 100
--- NOTE | 2024-07-01 08:15 | P.OP_ITS ---
Procedure Note - Detailed Date of Procedure 07/01/24 Pre-op Diagnosis subcutaneous mass right arm Post-op Diagnosis Same Procedure Performed Excision 2.8 cm subcutaneous mass right upper arm with no margin Surgeon Mahesh Ellison MD [employer] Charlene Gomez [facility] Anesthesia General (G IV S) Indications Patient has a painful subcutaneous nodule right upper arm overlying her deltoid muscle. Findings Lipoma Description of Procedure Patient was seen in the preoperative holding area. The area the nodule was marked on the skin as was the anticipated incision. She was taken to surgery a nd anesthesia was introduced. The right upper arm was prepped and draped. Local was infiltrated over the area of the anticipated incision. More local was infiltrated around the area of the subcutaneous nodule. Incision was made and deepened through the skin and superficial subcutaneous. The nodule was easily seen. Cautery was used for hemostasis. Using a combination of blunt and sharp dissection, the nodule was removed completely. Cautery was used for hemostasis after removal. The nodule was measured and was 2.8 cm in longest dimension. No margins were taken with the nodule. The wound was reinspected and was hemostatic. The wound was closed with subcutaneous interrupted 4-0 Vicryl suture. The skin was then finally closed with a running 4-0 Monocryl skin suture. Wound was dressed with Exofin surgical adhesive. Patient was awakened and taken to recovery in good condition. Sponge and needle counts were correct x2. Estimated Blood Loss -5 Drains No Packing No Pathology Yes (Lipoma) Complications None Condition Stable Disposition Same day [facility] Billing Surgery - Charge Forward: Surgery Billing (Excision 2.8 cm subcutaneous mass right upper arm with no margin)
[2024-07-01 08:30] VITALS: BP 118/60; PULSE 58; RESP 16
[2024-07-01 08:43] VITALS: BP 122/50; PULSE 55; RESP 16
== END 2024-07-01 08:50 | disposition home or self-care (01) ==
PROVIDERS: PCP Physician Assistant; Visit Provider Surgery
PROC: (CPT 24075; principal; 2024-07-01 07:30)
DX: D17.21 Benign lipomatous neoplasm of skin and subcutaneous tissue of right arm (principal); G89.18 Other acute postprocedural pain; E78.5 Hyperlipidemia, unspecified; K21.9 Gastro-esophageal reflux disease without esophagitis; J44.9 Chronic obstructive pulmonary disease, unspecified; F41.9 Anxiety disorder, unspecified; E66.9 Obesity, unspecified; Z68.31 Body mass index [BMI] 31.0-31.9, adult; Z98.890 Other specified postprocedural states; Z87.891 Personal history of nicotine dependence; Z80.9 Family history of malignant neoplasm, unspecified
CPT/HCPCS: 24075; 88304; J0690; J2250; J2405; J2704; J3010; J7120

== ENCOUNTER 2024-07-28 06:42 | Outpatient (CLI) | payer OTHER, SELFPAY ==
--- NOTE | ~2024-07-28 | US_ITS ---
Abdominal Sonogram: Real-time sonographic imaging of the abdomen was performed. Clinical History: Epigastric mass Findings: The liver appears normal with no evidence of mass lesion or bile duct dilatation. Main por ashli vein demonstrates normal direction of flow. The spleen is normal in size without evidence of foca l lesion. The gallbladder is well distended, and appears normal with no evidence of gallstone or wal l thickening. The common bile duct measures 4 mm. The visualized pancreas, aorta, and IVC are unrema rkable. The right kidney measures 12.0 cm in length and the left kidney measures 11.7 cm. There is no hydronephrosis or renal calculus. Left lower pole renal cyst measures 5.9 cm in diameter. Impression: 5.9 cm left lower pole renal cyst. No other significant findings. Reviewed, dictated and finalized at [facility]. Impression: 5.9 cm left lower pole renal cyst. No other significant findings.
--- OUTSIDE RECORDS SUMMARY | 2024-07-28 06:45 | XMS_ITS | Continuity of Care Document ---
Author Organization [facility] Address [address] [place] [address] [place] [address] Phone Care Team Providers Care Ski Maker Name Role Phone Deon Carlos DO Unavailable Unavailable Advance Directives Directive Yes / No Effective Date File Name No Information Encounters Encounter Description Practice Location Reason(s) For Visit Diagnoses Date Provider Providers Copied on [facility]counter [facility] [id number] [place] [address] [address], [place], [place], [id number], [place] tel:[phone] [facility] No Information Terrance Shaikh. [address] [facility], [place], [address], [place]. tel:[phone] Family History Family Member Type Diagnosis Age At Onset No Information Payers Payer name Insurance type Covered republican ID Authoriza tion(s) No Information Social History [...]
--- OUTSIDE RECORDS SUMMARY | 2024-07-28 06:45 | XMS_ITS | Data Portability ---
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[employer] [facility] Call office if worse, ER if life threatening illness RTC 6 months and PRN She voices understanding of plan and agrees [email or web address] Not available 11/13/2022 12:58:59 01/18/2023 01/18/2023 C-scope-11/2022- repeat 5 years- 11/2027 Mammogram- 07/2020- has order from MECH[employer]UFACTURING [employer]INE[employer] [facility] Call office if worse, ER if life threatening illness RTC 6 months and PRN- patient plans to transfer care to a PCP in [place] She voices understanding of plan and agrees [email or web address] Not available 01/18/2023 14:06:53 05/20/2023 05/20/2023 Assessment: Very severe OSAHS, AHI = 84 4 mm LAYNE pulm nodule Plan: The following were reviewed and explained to the patient: primary care/referral note Chest CT 06/17/20 4 mm LAYNE pulm nodule Chest CT 10/16/22 4 mm LAYNE pulm nodule [facility] split sleep study 12/22/15 AHI = 84, [...] further management. Follow-up: 3 months, August 2023 [facility] Not available 05/20/2023 15:45:10 10/23/2023 10/23/2023 Assessment: Very severe OSAHS, AHI = 84 4 mm LAYNE pulm nodule Plan: The following were reviewed and explained to the patient: Chest CT 06/17/20 4 mm LAYNE pulm nodule Chest CT 10/16/22 4 mm LAYNE pulm nodule [facility] split sleep study 12/22/15 AHI = 84, [...] contr ast No observ ation record ed. [address] [place], [address], 10/19/2022 15:24:30 12/17/19 23 12/16/2022 CT, abdom en + pelvi s, w/ contr ast No observ ation record ed. [address], [place], [address], 12/18/2022 10:52:35 05/15/19 24 12/22/2015 polys omnog elizabeth, split night No observ ation record ed. [facility] Not Available 2023 17:01:45 Result Notes None recorded. Problems Name Problem SNOMED Code Status Onset Date Resolution Date Notes Provider Name and Address Organization Details Recorded Time Prediabete s 389353009 Active 2022 GISEL Manrique [address], [place], [address] , [facility] 3 14:47:31 Solitary nodule of lung 626894627 Active 2022 GISEL Manrique [address], [place], [address] , [facility] 3 14:47:48 Chronic sinusitis 04538234 Active 2022 GISEL Manrique [address], [place], [address] , [facility] 3 14:47:53 Vitamin B12 deficiency (non anemic) 45544968 Active 2022 GISEL Manrique [address], [place], [address] , [facility] 3 14:48:02 Anxiety 50438764 Active 2022 GISEL Manrique [address], [place], [address] , [facility] 3 14:48:25 Nicotine dependence 86751921 Active 2022 GISEL Manrique [address], [place], [address] , [facility] 3 14:48:30 Gastroesop hageal reflux disease without esophagiti s 352897470 Active 2022 THADDEUS Manrique-Johnny [address], [place], [address] , [facility] Between [facility] [employer] 3 14:48:35 Allergic rhinitis 85840123 Active 2022 THADDEUS Manrique-C [address], [place], [address] , [facility] Between [facility] [employer] 3 14:48:41 Diverticul itis 996126416 Active 2022 Joann carias, [place] Between [facility] [employer] 3 14:00:22 Mass of soft tissue 038985813 Active 2023 Tyler joshi MD [address], [place], [address] , [facility] Between [facility] [employer] 4 13:29:02 Shoulder joint pain 421041044 Completed 201603/10/2018 Not Available [facility] 3 04:52:07 Vitamin D deficiency 55196187 Active 2016 Not Available [facility] 3 04:52:07 Depressive disorder 71936984 Active Not Available [facility] 3 04:52:07 Osteoarthr itis 369441972 Active 2021 Not Available [facility] 3 04:52:07 Obesity 432702114 Active 2017 Not Available [employer] 3 04:52:08 Hyperlipid emia 59190064 Active 2016 Not Available [facility] 3 04:52:08 Obstructiv e sleep apnea syndrome 72823717 Active 2020 Not Available [facility] 3 04:52:08 COVID-19 020041534 Active 2022 Not Available [facility] 3 04:52:08 [...] C-sections 1988, 1992 Right CTS release surgery 2014 Right rotator cuff surgery 2016 Left CTS release surgery 2019 Left foot surgery 2022 Occupational History: Wedding c4 planner Some problems listed in Document: #[id number] could not be added to this patient's chart. Please review this document and add these problems to the patient's chart manually as needed. Problem Notes None recorded. Procedures Surgical History Date Name Laterality Status Provider Name and Address Organization Details Recorded Time 12/03/19 19 Unlisted px dentalvlr strux completed Not Available [facility] 04/18/2022 04:43:13 02/05/20 17 Rotator cuff surgery completed Not Available [facility] 04/18/2022 04:43:13 Foot completed Not Available [facility] 02/2022 04:43:13 biopsy of skin completed Not Available [facility] 04/18/2022 04:43:13 Carpal tunnel completed Not Available [facility] 04/18/2022 04:43:13 section completed Not Available [facility] 04/18/2022 04:43:13 colonoscopy completed Not Available [facility] 04/18/2022 04:43:13 Imaging Results None recorded. Procedure Notes None recorded. Medical Equipment None Reported. Allergies Allergen ID Allergen Name Allergen Category Reaction Reaction Severity Criticality Documentation Date Start Date Code Code System Note Provider Name and Address Organization Details Recorded Time 8576 Toxicoden dron vernix leafy twig extract Not available Not available Not available Not available 04/18/2022 52579 61 RxNorm Not Available [facility] 3 05:05:58 8578 poison oak extract environme nt Not available Not available Not available 04/18/2022 77946 UNK Not Available [facility] 3 05:05:58 8579 poison emeka extract environme nt Not available Not available Not available 04/18/2022 94364 6 RxNorm Not Available [facility] 3 05:05:59 8581 Elavil medicatio n Not available Not available Not available 04/18/2022 60331 RxNorm Not Available [facility] 3 05:05:59 Medications Name Sig Start Date [...] completed Not Available Not Available Not Available [facility] 3 07/25 completed Not Available Not Available [...] Not Available Not Available Not Available [employer] [facility]-3 Krill Oil 500 mg-115 mg-30 mg-64 mg [...] Not Available Not Available Vitals Date Recorded Heart rate Heart rate Respiratory rate Provider Name and Address Organization Details Last Updated DateTime 05/20/2023 61 /min 61 /min 15 /min Rene Conley MD [address] [facility], [facility] [address], [place], [address], [facility] [email or web address] 05/20/2023 15:48:21 Date Recorded Body height Body mass index (BMI) Body weight Body temperature Oxygen saturation Oxygen saturation in Arterial blood by Pulse oximetry Systolic blood pressure Diastolic blood pressure Provider Name and Address Organization Details Last Updated DateTime 4 165.1 cm 32.3 kg/m2 35481.6 4 g 98 [degF] 98 % 98 % 130 mm[Hg] 76 mm[Hg] Rowan Muñoz MA [facility] [email or web address] 4 14:35:16 Date Recorded Heart rate Respiratory rate Provider N naz and Address Organization Details Last Updated DateTime 10/23/2023 80 /min 14 /min Rene Conley MD [address] [facility], [facility] [address], [place], [address] [email or web address] 10/23/2023 16:04:17 Date Recorded Body height Body mass index (BMI) Body weight Heart rate Oxygen saturation Oxygen saturation in Arterial blood by Pulse oximetry Body temperature Systolic blood pressure Diastolic blood pressure Provider Name and Address Organization Details Last Updated DateTime 4 165.1 cm 31.8 kg/m2 15100.1 4 g 80 /min 96 % 96 % 98.1 [degF] 126 mm[Hg] 70 mm[Hg] Evert Wick CMA [facility] [email or web address] 4 15:43:59 Date Recorded Body height Body mass index (BMI) Body weight Body temperature Heart rate Oxygen saturation Oxygen saturation in Arterial blood by Pulse oximetry Systolic blood pressure Diastolic blood pressure Provider Name and Address Organization Details Last Updated DateTime 3 165.1 cm 35.4 kg/m2 98618.1 7 g 97.6 [degF] 72 /min 98 % 98 % 128 mm[Hg] 76 mm[Hg] Claritza Lee MA [facility] [email or web address] 3 11:41:22 Date Recorded Heart rate Body temperature Systolic blood pressure Diastolic blood pressure Provider Name and Address Organization Details Last Updated DateTime 01/07/2024 60 /min 98.1 [degF] 120 mm[Hg] 76 mm[Hg] Iman Ann [facility] 01/07/2024 12:17:52 Date Recorded Body weight Body mass index (BMI) Oxygen saturation Oxygen saturation in Arterial blood by Pulse oximetry Provider Name and Address Organization Details Last Updated DateTime 01/07/2024 08754.14 g 31.8 kg/m2 97 % 97 % Reynaldo Dorsey Arsh [facility] 01/07/2024 11:32:21 Date Recorded Body height Provider Name an d Address Organization Details Last Updated DateTime 01/07/2024 165.1 cm Love Jordan MA [facility] 01/07/2024 11:29:56 Date Recorded Body height Body mass index (BMI) Body weight Body temperature Heart rate Oxygen saturation Oxygen saturation in Arterial blood by Pulse oximetry Systolic blood pressure Diastolic blood pressure Provider Name and Address Organization Details Last Updated DateTime 165.1 cm 32.9 kg/m2 28065.2 9 g 98 [degF] 74 /min 98 % 98 % 124 mm[Hg] 78 mm[Hg] Claritza Lee MA [facility] 12:09:44 Social History Question Answer Notes LastModified by Organization Details LastModified Time Tobacco Smoking Status Current Every Day Smoker Not Available [facility] 04/18/2022 04:15:42 Do You Have An Advance Directive? No MIGRATION.030 [id number] Information not available 04/18/2022 What Is Your Level Of Caffeine Consumption? Moderate MIGRATION.030 912082 Information not available 04/18/2022 How Much Tobacco Do You Chew? None MIGRATION.0301 [id number] Information not available 04/18/2022 In The 14 Days Before Symptom Onset, Have You Had Close Contact With A Laboratory-confi rmed COVID-19 While That Case Was Ill? No MIGRATION.030 901604 Information not available 04/18/2022 In The 14 Days Before Symptom Onset, Have You Had Close Contact With A Person Who Is Under Investigation For COVID-19 While That Person Was Ill? No MIGRATION.0301 720150 Information not available 04/18/2022 What Type Of Diet Are You Following? REGULAR MIGRATION.0301 352496 Information not available 04/18/2022 Which Illicit Or Recreational Drugs Have You Used? None MIGRATION.0301 294334 Information not available 04/18/2022 Do You Have An Electrostatic Air Filter? No MIGRATION.0301 495105 Information not available 04/18/2022 Have There Been Any Changes To Your Family Or Social Situation? No MIGRATION.0301 578739 Information not available 04/18/2022 What Is The Fluoride Status Of Your Home? Unknown MIGRATION.0301 117751 Information not available 04/18/2022 Are There Any Guns Present In Your Home? No MIGRATION.0301 364046 Information not available 04/18/2022 Do You Have A Humidifier? No MIGRATION.0301 600651 Information not available 04/18/2022 Do You Use Insect Repellent Routinely? No MIGRATION.0301 619629 Information not available 04/18/2022 Where Do You Live? SingleLevelHouse MIGRATION.0301 509785 Information not available 04/18/2022 Do You Have Moisture Problems In Your Home? No MIGRATION.0301 163772 Information not available 04/18/2022 What Was The Date Of Your Most Recent Tobacco Screening? 05/20/2023 Information not available 05/20/2023 How Many Children Do You Have? 2 MIGRATION.0301 025301 Information not available 04/18/2022 What Is Your Current Pack Years? 10-19packyears MIGRATION.0301 811839 Information not available 04/18/2022 Do You Have Any Pets? Yes MIGRATION.0301 355561 Information not available 04/18/2022 Do You Use Your Seat Belt Or Car Seat Routinely? Yes MIGRATION.0301 153359 Information not available 04/18/2022 Do You Have Smoke And Carbon Monoxide Detectors In Your Home? Yes MIGRATION.0301 913973 Information not available 04/18/2022 At What Age Did You Start Smoking Tobacco? 32 MIGRATION.0301 212574 Information not available 04/18/2022 Are You Passively Exposed To Smoke? No MIGRATION.0301 230201 Information not available 04/18/2022 Are There Any Smokers In Your House? No MIGRATION.0301 554067 Information not available 04/18/2022 How Much Tobacco Do You Smoke? 0.5 PPD 1 Cigg Daily- 10/2022 1/2pk Daily- [email or web address] Information not available 01/18/2023 Do You Use Sunscreen Routinely? Yes MIGRATION.0301 268931 Information not available 04/18/2022 How Many Years Have You Smoked Tobacco? 25 MIGRATION.0301 324799 Information not available 04/18/2022 Have You Recently Traveled Abroad? No MIGRATION.0301 253215 Information not available 04/18/2022 Do You Have Any Dietary Restrictions? No MIGRATION.0301 638556 Information not available 04/18/2022 Sex: Unknown Functional Status Question Answer Note LastModified by Organizat ion Details LastModified Time Do you use any illicit or recreational drugs? No MIGRATION.42156 71755 Information not available 04/18/2022 What is your level of alcohol consumption? Occasional MIGRATION.03751 32686 Information not available 04/18/2022 Do you or have you ever used smokeless tobacco? Never used smokeless tobacco MIGRATION.85008 24746 Information not available 04/18/2022 Have you been exposed to chemicals or toxins? 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 Never used electronic cigarettes MIGRATION.73100 34688 Information not available 04/18/2022 What is your exercise level? Occasional MIGRATION.89654 76074 Information not available 04/18/2022 Mental Status Question Answer Note LastModified by Organizat ion Details LastModified Time Do you feel stressed (tense, restless, nervous, or anxious, or unable to sleep at night)? [id number] MIGRATION.[id number] 6 Information not available 04/18/2022 Family History Relationship Description Onset Age of this Age Resolved Age Notes LastModified by Organization Details LastModified Time Mother Carcinoma of lung 58 MIGRATION.375 [id number] Not available 04/18/2022 04:43:16 Father Leukemia (morphologic abnormality) 79 MIGRATION.403 [id number] Not available 04/18/2022 04:43:16 Mother Obstructive sleep apnea syndrome [email or web address] Not available 2023 15:30:53 Paternal Grandmother Myocardial infarction [email or web address] Not available 05/19 15:31:13 Paternal Grandfather Alcoholism [email or web address] Not available 02/2023 15:31:27 Maternal Grandfather Alcoholism [email or web address] Not available 02/2023 15:31:33 Maternal Grandmother Tuberculosis [email or web address] Not available 0 05/20/2023 15:31:56 Maternal Uncle Malignant tumor of pancreas [email or web address] Not available 2023 15:32:13 Paternal Aunt Malignant neoplasm of uterus [email or web address] Not available 2023 15:32:26 Medical History Condition Response NERVE DISEASE N BLINDNESS N RHEUMATIC FEVER N KIDNEY STONES N BLADDER PROBLEMS N MRSA N CARPAL TUNNEL SYNDROME N OTHER # 1 N POLIO N LUNG DISEASE/DISORDER N HISTORY OF DRUG ABUSE N RADIATION / CHEMOTHERAPY N COPD N Other # 2 N SPORTS INJURY N ANKLE PAIN N BLOOD DISEASES N EAR OR HEARING PROBLEMS N MUMPS N SCHIZOPHRENIA N SHINGLES N SHOULDER PAIN N DEPRESSION (INCLUDING POST ) N BOWEL PROBLEMS N STROKE/TIA N ULCERS N KNEE PAIN N BENIGN PROSTATIC HYPERPLASIA N MEASLES N MYOCARDIAL INFARCTION N OBESITY N GERD/NAUSEA N ANEURYSM N URINARY/BLADDER/KIDNEY PROBLEMS N CORONARY ARTERY DISEASE (CAD) N Do you have Advance directive? N ADDICTION CONCERNS N Impotence N ENDOMETRIOSIS N USE OF BLOOD THINNERS N SKIN PROBLEMS N EMPHYSEMA N GASTROINTESTINAL DISORDER N PERIPHERAL VASCULAR DISEASE N MUSCLE,JOINT OR BONE PROBLEMS N DVT N STOMACH ULCERS N GASTROINTESTINAL BLEEDING N Do you have a living will? N BLOOD CLOTS N ASTHMA N CATARACTS N USE OF NSAIDS N CONCUSSION OR SPINAL TRAUMA N ERECTILE DYSFUNCTION N VARICOSITIES N GI PROBLEMS N Low Testosterone N NEUROPATHY N INFERTILITY N AIDS/HIV N FRACTURES N CHEMOTHERAPY / RADIATION N LIVER DISEASE N MALE HYPOGONADISM N HYPERTENSION N ELBOW PAIN N Deficiency Y TOURETTE'S N Metal allergy N ANXIETY DISORDER N BLOOD TRANSFUSION N ANEMIA/BLOOD DISORDER N CHRONIC EAR INFECTIONS N BIPOLAR DISORDER N BRONCHITIS N OSTEOARTHRITIS N TUBERCULOSIS N GLAUCOMA N FOOT PROBLEM N HEART VALVE DISORDERS N DIVERTICULITIS N SLEEP APNEA Y CHICKENPOX N SOFT TISSUE INJURY N ALLERGIES/HAYFEVER N INFECTIOUS DISEASE N PROSTATE N HEART ARRHYTHMIA N INSOMNIA N RHEUMATOID ARTHRITIS N HIGH CHOLESTEROL / HYPERLIPIDEMIA N EYE PROBLEMS N EDEMA N CHRONIC PAIN SYNDROME N CONSTIPATION N CAROTID BLOCKAGE N BACK / NECK PROBLEMS N HAVE YOU BEEN HOSPITALIZED OR SEEN IN [facility] IN THE PAST YEAR ? N ATHEROSCLEROSIS N BURSITIS N BREAST PROBLEMS N HERNIATED DISC N DIALYSIS N ECZEMA N FIBROMYALGIA N OSTEOPOROSIS N ARTHRITIS Y Do you have a healthcare POA? N NO SIGNIFICANT PAST MEDICAL HISTORY N PERIPHERAL NEUROPATHY N APPENDICITIS N DIABETES, TYPE N BAD TEETH N ENT N HEARTBURN / REFLUX N AFIB N AUTISM SPECTRUM DISORDER (ASD) N HEPATITIS / LIVER DISEASE N GOUT N SLEEP DISORDER N ALZHEIMER'S DISEASE N Brain Problems N DEMENTIA N HERPES N SEIZURES/EPILEPSY N HEADACHES/MIGRAINES N VASCULAR DISEASE N PACEMAKER N Blood Disorder N HIP PAIN N DIZZINESS N HEAD TRAUMA OR INJURY N KIDNEY DISEASE N HEART DISEASE/HEART PROBLEMS N MULTIPLE SCLEROSIS N CANCER: SPECIFY N CARDIAC ARRHYTHMIA N ANESTHESIA COMPLICATIONS N ATRIAL FIBRILLATION N Gall Stones N PULMONARY EMBOLISM N AUTOIMMUNE DISEASE N Gynecological HistoryNo gynecological history recorded. Obstetrics History GPAL:G 0 P 0 0 0 0 Immunizations Vaccine Type Date Status Note Provider Nam e and Address Organization Details Recorded Time Tdap 05/08/2022 completed THADDEUS Manrique-Johnny [address] [facility] [address], [place], [address], [facility] [employer] 05/08/2022 13:16:59 COVID-19 vaccine, vector-nr, rS-Ad26, PF, 0.5 mL 04/28/2020 completed Not Available [facility] 05:05:39 Past Encounters Encounter ID Performer Location Encounter Start Date Encounter Closed Date Diagnosis/Indication Diagnosis SNOMED-CT Code Diagnosis ICD10 Code Diagnosis Note [id number] Aurelio fowler MD [facility]_G Internal Med [facility] [address] [facility] , [facility] [place] [address] 06/15/2020 00:00:00 06/15/2020 20:50:34 [id number] Aurelio fowler MD S_G Internal Med [facility] [address] [facility], [facility] [address] [place] [address] 07/08/2020 00:00:00 07/08/2020 20:03:54 [id number] [facility]_Histor ic_Gateway S_GMG Pulmonolo gy [place] [address] [place] [address] 07/25/2020 00:00:00 07/25/2020 17:05:00 [id number] _ATHN_MIGR ATION_1 _ATHENA_M IGRATION_ DEFAULT_1 _1 , 08/17/2020 00:00:00 08/17/2020 16:47:59 [id number] [facility]_Histor ic_Gateway [facility]G Pulmonolo gy [place] [address] [place] [address] 11/29/2020 00:00:00 11/29/2020 14:06:07 [id number] Aurelio fowler MD [facility] Internal Med [address] [place] [address] 12/05/2020 00:00:00 12/05/2020 13:16:54 [id number] Aurelio fowler MD [facility] Internal Med [address] [place] [address] 06/06/2021 00:00:00 06/06/2021 13:43:19 [id number] Mg Rogers MD [facility] [address] [address] 07/06/2021 00:00:00 07/06/2021 12:11:03 [id number] Mg Rogers MD [facility] [address] [address] 08/03/2021 00:00:00 08/03/2021 12:30:58 [id number] Mg Rogers MD [facility] Ortho [address] [place] [address] 10/04/2021 00:00:00 10/04/2021 21:23:43 [id number] Aurelio fowler MD [facility] Internal Med [address] [place] [address] 11/14/2021 00:00:00 11/14/2021 13:20:09 [id number] Aurelio fowler MD [facility] Internal Med [address] [facility] [place] [address] 05/08/2022 11:01:28 05/08/2022 11:45:18 Prediabetes 437240000 R73.03 no meds- working on lifestyle Hyperlipidemia 15196528 E78.5 on atorvastat in Chronic ob structive pulmonary disease 39729348 J44.9 did not take spiriva, does not want to be on inhaler Vitamin D deficiency 347 89721 E55.9 not currently on supplement Solitary n odule of lung 865691558 R91.[address] 06/17/20she did not get her repeat CT scan- reordered, encouraged Chronic sinusitis 591896 00 J32.9 on flonase Vitamin B1 2 deficiency (non anemic) 46211046 E53.8 on supplement Sleep apnea 41220530 G47 .30 on CPAP with excellent clinical benefit, should continuefo vahe pulm for compliance - Maritza Beyer Anxiety 41321017 F41.9 follow psychiatry - Love at Dr. Lynne's office, on wellbutrin call office if any change in mood or behavior Nicotine dependence 5629 4008 F17.200 3 minutes spent with patient discussing risks, cessation options. Patient encouraged to quit. She declines NRT Gastroesop hageal reflux disease without esophagitis 594166117 K21.9 on OTC prn omeprazole Allergic rhinitis 285145 04 J30.9 on zuleyma and singulairc all office of any change in mood or behavior Obesity 570652621 E66.9 recommend healthy, well balanced mealsfocus on lean meats, fresh vegetables , fresh fruits, whole grainsredu ce fast/proce ssed foods or eating out to no more than 1-2 times per weekaim to get 30 min of exercise most days of the week- walking is a great choicealso recommend resistance training 2-3 times per week Hypomagnesemia 493712024 E83.42 previously low -recheck Menopausal flushing 1983 30193 N95.1 menopausal by FSH level, get appt with MECHANICAL MANUFACTURING ENGINEER to discuss HRThas upcoming appointmen t with leveler Screening for malignant neoplasm of colon 230426910 Z12.11 Screening mammography 24 400502 Z12.31 Administra tion of diphtheria, pertussis, and tetanus vaccine 993312077 Z23 [id number] Aurelio fowler MD [facility]_GMG Internal Med [address] [facility] [place] [address] 11/13/2022 11:23:57 11/13/2022 12:16:14 Prediabetes 421462457 R73.03 no meds- working on lifestyle Hyperlipidemia 03882157 E78.5 on atorvastat inwants to work some more on diet/exerc ise before we increase her dose Chronic ob structive pulmonary disease 02338996 J44.9 did not take spiriva, does not want to be on inhaler Vitamin D deficiency 347 90613 E55.9 not currently on supplement Solitary n odule of lung 669749153 R91.[address] 10/16/2022 er radiologis t- no further follow up needed Patient is requesting a scan every 2 years Chronic sinusitis 696989 00 J32.9 on flonase Vitamin B1 2 deficiency (non anemic) 57824952 E53.8 on supplement Sleep apnea 52434820 G47 .30 on CPAP with excellent clinical benefit, should continuefo vahe pulm for compliance - Maritza Beyer Anxiety 21690866 F41.9 follow psychiatry - Love at Dr. Lynne's office, on wellbutrin call office if any change in mood or behavior Nicotine dependence 5629 4008 F17.200 3 minutes spent with patient discussing risks, cessation options. Patient encouraged to quit. She declines NRT Gastroesop hageal reflux disease without esophagitis 031396539 K21.9 on OTC prn omeprazole Allergic rhinitis 246347 04 J30.9 on zuleyma and singulairc all office of any change in mood or behavior Obesity 972009983 E66.9 recommend healthy, well balanced mealsfocus on lean meats, fresh vegetables , fresh fruits, whole grainsredu ce fast/proce ssed foods or eating out to no more than 1-2 times per weekaim to get 30 min of exercise most days of the week- walking is a great choicealso recommend resistance training 2-3 times per week Hypomagnesemia 624660692 E83.42 back to normal labs 10/2022 [id number] Aurelio fowler MD [facility] [address] [place] [address] 01/18/2023 11:56:44 01/18/2023 14:01:33 Diverticulitis 383207204 K57.92 now resolvedin crease fiber in dietER precaution s Prediabetes 968073286 R7 3.03 no meds- working on lifestyle Hyperlipidemia 28442869 E78.5 on atorvastat inwants to work some more on diet/exerc ise before we increase her dose Chronic ob structive pulmonary disease 59075663 J44.9 did not take spiriva, does not want to be on inhaler Vitamin D deficiency 347 21649 E55.9 not currently on supplement Solitary n odule of lung 232383341 R91.[address] 10/16/2022 er radiologis t- no further follow up needed Patient is requesting a scan every 2 years Chronic sinusitis 787714 00 J32.9 on flonase Vitamin B1 2 deficiency (non anemic) 75807897 E53.8 on supplement Sleep apnea 15640765 G47 .30 on CPAP with excellent clinical benefit, should continuefo vahe vyas for compliance - Maritza Beyer Anxiety 92073273 F41.9 follow psychiatry - Love at Dr. Lynne's office, on wellbutrin call office if any change in mood or behavior Nicotine dependence 5629 4008 F17.200 1 minutes spent with patient discussing risks, cessation options. Patient encouraged to quit. She declines NRT Gastroesop hageal reflux disease without esophagitis 768856050 K21.9 on OTC prn omeprazole Allergic rhinitis 823526 04 J30.9 on zuleyma and singulairc all office of any change in mood or behavior Obesity 168953020 E66.9 recommend healthy, well balanced mealsfocus on lean meats, fresh vegetables , fresh fruits, whole grainsredu ce fast/proce ssed foods or eating out to no more than 1-2 times per weekaim to get 30 min of exercise most days of the week- walking is a great choicealso recommend resistance training 2-3 times per week Hypomagnesemia 360780737 E83.42 back to normal labs 10/2022 [id number] Rene Conley MD [facility] [address] [place] [address] 0 05/20/2023 14:05:28 05/21/2023 08:46:57 Obstructive sleep apnea syndrome 45794684 G47.33 [id number] Rene Conley MD [facility] [address] [place] [address] 0 10/23/2023 15:26:03 10/25/2023 10:11:49 Obstructive sleep apnea syndrome 01908194 G47.33 [id number] Tyler joshi MD [facility] General Surgery [address] [place] [address] 1 01/07/2024 11:21:55 01/07/2024 14:23:15 Mass of soft tissue 223733685 R22.9 Right upper arm Health Concerns Section Related Observation LastModified by Organization Detai ls LastModified Time None Recorded Concern Status LastModified by Organization Details LastModified Time None Recorded Advance Directives Directive N: Payers Encounter Date Sequence Insurance Name Policy Number Policy Garcia Covered Member ID Garcia Member ID Guarantor Name 11/13/2022 1 [employer] [id number] Mamadou Gonterman [id number] Rowan L Gonterman 01/18/2023 1 [employer] [id number] Mamadou Gonterman [id number] Rowan L Gonterman 05/20/2023 1 [employer] (POS) [id number] Rowan L Gonterman [id number] Rowan L Gonterman 10/23/2023 1 [employer] (POS) [id number] Rowan L Gonterman [id number] Rowan L Gonterman 01/07/2024 1 [employer] (POS) [id number] Rowan L Gonterman [id number] Rowan L Gonterman Notes Date Note Type Note Provider Name and Address Organization Details Recorded Time 11/13/2022 text/html Rowan presents today for follow up. She just had her labs done couple days ago so we went over those today. She tells me she wants to continue working on diet and exercise to see if she can help the cholesterol before we go up on the medication dose. She has been working hard on her nutrition and exercise, she has lost almost 15 lb since I last saw her. She reports she does have her colonoscopy scheduled for a few weeks from now. She did go to the leveler. They did give her a mammogram order so she has to schedule that. We also discussed her CT of the lungs. Per Radiology, she does not need any more follow-up, however she prefers to have a scan done every 2 years at her request. Anxiety is managed by Psychiatry who has her on the Wellbutrin. She denies any SI or HI today. She does continue to smoke. Not interested in cessation at this time. GISEL Manrique [address], [address], [place], [address], [facility] 11/13/2022 12:59:43 01/18/2023 text/html Rowan presents today for ER follow up. She had her screening colonoscopy on December 14. There were no polyps, she had diverticula, but at that time none were inflamed. Two days later on the she developed some lower left quadrant pain. She presented to the ER and had a CT scan where she was found to have some mild diverticulitis. They sent her home on Levaquin and Flagyl which resolved her symptoms. She reports she did have something with seeds and a grainy red sauce the day before the diverticulitis started, so she thinks that may have predisposed her to it. She is now back to her baseline and has no abdominal pain today. She also would like to discuss the results of her most recent chest CT. She has a copy but she is confused about the weights were did. She still needs to get her mammogram done. She does have an order from her leveler. GISEL Manrique [address], [address], [place], [address], [facility] 01/18/2023 14:07:39 05/20/2023 text/html Primary care/Ref erring provider: ALTON Linder During the [facility] split sleep study on 12/22/15, AHI = 84. At home since 2020, the patient uses a ResMed AirSense 10 autoset unit with heated humidification. The patient does not need the ramp to start low and go up slowly on the pressure anymore. There is some xerostomia in a.m. There is no hose/mask condensation with water.The patient wears ResMed medium AirFit P10 nasal pillows without chin strap. There is no claustrophobia, no nostril/nose bridge irritation, no facial rash, no facial numbness, no nosebleeding. The patient feels more refreshed upon waking and daytime alertness is improved. Energy levels are sustained until noon. At home, the patient sleeps from 10:30 pm to 6:30 am and wakes up without an alarm. Snoring: heavy, since .Snorting: noChoking: noCoughing: yesGasping: noGagging: noSighing: noWitnessed apnea: yesTwitching or jerking of leg(s), arm(s), body, head: noTeeth grinding: noTeeth clenching: noSleeptalking: yesSleepwalking: noSleep crying: noBedwetting: noTongue/lip/gum/cheek biting: noSleeping with open mouth: yesSleep paralysis: noHypnagogic hallucinations: noHypnopompic hallucinations: noVivid dreams: noDifficulty with sleep onset: noDifficulty with sleep maintenance: yesSleep interruptions: nocturia x 1Patient wakes up with: fatigue, xerostomia, cognitive impairmentDaytime cataplexy: noMorning hypersomnolence: noAfternoon hypersomnolence: yesCaffeine sources in diet: tea 2 cups per day, soda 1 glass per month, chocolate 1 candy bar per year Associated medical and psychiatric conditions:Congestive heart failure: noCoronary artery disease: noMyocardial infarction: noHypertension: noStroke: noBronchial asthma: noChronic obstructive pulmonary disease: noDepression: yesBipolar disorder: noAnxiety: yesPanic disorder: noPosttraumatic stress disorder: noAttention deficit and hyperactivity disorder: noObsessive Compulsive disorder: noSchizophrenia: noSchizoaffective disorder: noPersonality disorder: noChronic analgesic use: noChronic sedative/hypnotic use: no EPWORTH SLEEPINESS SCALE (ESS) CHANCE OF DOZING SCORE0 = would never doze1 = slight chance of dozing2 = moderate chance of dozing3 = high chance of dozing SITUATION AND CHANCE OF DOZINGSitting and reading - 1Watching television - 0Sitting inactive in a public place (e.g. a theater or meeting) - 0As a passenger in a car for an hour without a break - 0Lying down to rest in the afternoon when circumstances permit - 2Sitting and talking to someone - 0Sitting quietly after lunch without alcohol - 0In a car, while stopped for a few minutes in the traffic - 0TOTAL SCORE 3Subjectively, patient has a slight chance of dozing. Rene Conley MD [address] [place] [address], [address], [place] - [facility] [employer] 05/20/2023 15:48:35 10/23/2023 text/html Primary care/Ref erring provider: Richard Linder the [facility] split sleep study on 12/22/15, AHI = 84. At home since 09/13/23, the patient uses a ResMed AirSense 10 autoset unit with heated humidification. The patient does not need the ramp to start low and go up slowly on the pressure anymore. There is some xerostomia in a.m. There is no hose/mask condensation with water.The patient wears ResMed medium AirFit P10 nasal pillows without chin strap. There is no claustrophobia, no nostril/nose bridge irritation, no facial rash, no facial numbness, no nosebleeding. The patient feels more refreshed upon waking and daytime alertness is improved. Energy levels are sustained until noon. At home, the patient sleeps from 10:30 pm to 6:30 am and wakes up without an alarm. Snoring: heavy, since .Snorting: noChoking: noCoughing: yesGasping: noGagging: noSighing: noWitnessed apnea: yesTwitching or jerking of leg(s), arm(s), body, head: noTeeth grinding: noTeeth clenching: noSleeptalking: yesSleepwalking: noSleep crying: noBedwetting: noTongue/lip/gum/cheek biting: noSleeping with open mouth: yesSleep paralysis: noHypnagogic hallucinations: noHypnopompic hallucinations: noVivid dreams: noDifficulty with sleep onset: noDifficulty with sleep maintenance: yesSleep interruptions: nocturia x 1Patient wakes up with: fatigue, xerostomia, cognitive impairmentDaytime cataplexy: noMorning hypersomnolence: noAfternoon hypersomnolence: yesCaffeine sources in diet: tea 2 cups per day, soda 1 glass per month, chocolate 1 candy bar per year Associated medical and psychiatric conditions:Congestive heart failure: noCoronary artery disease: noMyocardial infarction: noHypertension: noStroke: noBronchial asthma: noChronic obstructive pulmonary disease: noDepression: yesBipolar disorder: noAnxiety: yesPanic disorder: noPosttraumatic stress disorder: noAttention deficit and hyperactivity disorder: noObsessive Compulsive disorder: noSchizophrenia: noSchizoaffective disorder: noPersonality disorder: noChronic analgesic use: noChronic sedative/hypnotic use: no EPWORTH SLEEPINESS SCALE (ESS) CHANCE OF DOZING SCORE0 = would never doze1 = slight chance of dozing2 = moderate chance of dozing3 = high chance of dozing SITUATION AND CHANCE OF DOZINGSitting and reading - 1Watching television - 0Sitting inactive in a public place (e.g. a theater or meeting) - 0As a passenger in a car for an hour without a break - 0Lying down to rest in the afternoon when circumstances permit - 1Sitting and talking to someone - 0Sitting quietly after lunch without alcohol - 1In a car, while stopped for a few minutes in the traffic - 0TOTAL SCORE 3Subjectively, patient has a slight chance of dozing. Rene Conley MD [address] [place] [address], [address], [facility] [employer] 10/23/2023 16:11:24 01/07/2024 text/html Patient presents to clinic to discuss mass of R upper arm. States it has been there about 6 months, enlarging. No drainage. No other masses. No constitutional symptoms. PCP referred here. Tyler Uribe MD [address] [facility] [address], [place], [address], [facility] Between [facility] [employer] 01/07/2024 13:29:17 OBGyn Episode No OBEpisode recorded.
--- OUTSIDE RECORDS SUMMARY | 2024-07-28 06:45 | XMS_ITS | Referral Summary ---
Author Organization [facility] Address [address] [place] [phone] Care Team Providers Care Truck Railroad And Bus Motor Mechanic Name Role Phone Unavailable Primary Care Provider [...] 1:44 PM CDT Height 168.9 cm (5' 6.5) 06/17/2020 1:44 PM CDT Body Mass Index [...] age 40, based on guidelines of the [employer] (ACR Practice Parameter for the Performance of Screening and Diagnostic Mammography) and [place] [employer]. For women [...]
--- OUTSIDE RECORDS SUMMARY | 2024-07-28 06:45 | XMS_ITS | Encounter Summary ---
Author Organization [facility] Address [address] [place] [address] Care Team Providers Care Transmission And Protection Engineer Name Role Phone Unavailable Primary Care Provider Unavailabl e Prior Encounters Date Type Department Care Team Description 03/09/2019 Converted 13x Documents [facility] [address] [place] [address] <No scans attached> Plan of Treatment Not on file Visit Diagnoses Not on file
--- OUTSIDE RECORDS SUMMARY | 2024-07-28 06:45 | XMS_ITS | Data Portability ---
Author Organization [facility] [place] Address [address] [place] [address] Assessment Encounter Date Assessment Date Assessment LastModified [...] skeleton + vertebral fracture assessment [address], [address] [place] [address], [address], 4 16:49:00 MAMMO, screening, digital, bilateral [address], [address] [place] [address], [address], 4 16:49:00 Medication Orders None recorded. Patient TargetsNo targets recorded. Patient InstructionsNo instructions recorded. Reason for Referral None Reported. Problems Name Problem SNOMED Code Status Onset Date Resolution Date Notes Provider Name and Address Organization Details Recorded Time Finding of tobacco use and exposure Active 2014 Tobacco use;Record ed Elsewhere: No Locatio n: [facility] rce: EHR Chroni c: N Practice ID: 0001 Billa ble Time: 01:15:00 PM Not Available [employer] 0 16:07:17 Screening for malignant neoplasm of rectum Active 2017 Encounter for screening for malignant neoplasm of rectum;Rec orded Elsewhere: No Locatio n: [facility] rce: EHR Chroni c: N Practice ID: 0001 Billa ble Time: 11:30:00 AM Not Available [facility] 0 16:07:17 Emotional state finding Active 2017 Anxiety depression ;Recorded Elsewhere: No Locatio n: [facility] rce: EHR Chroni c: N Practice ID: 0001 Billa ble Time: 11:30:00 AM Not Available [facility] 0 16:07:[address] Concept Active 2014 Encntr for ham passer exam (general) (routine) w/o abn findings;R ecorded Elsewhere: No Locatio n: [facility] rce: EHR Chroni c: N Practice ID: 0001 Billa ble Time: 01:15:00 PM Not Available [facility] 0 16:07:[address] Concept Active 2017 Encntr for general adult medical exam w/o abnormal findings;R ecorded Elsewhere: No Locatio n: [facility] rce: EHR Chroni c: N Practice ID: 0001 Billa ble Time: 11:30:00 AM Not Available [facility] 0 16:07:17 Problem Notes None recorded. Procedures Surgical History Date Name Laterality Status Provider Name and Address Organization Details Recorded Time 8 Date of Last Pap Smear completed Cary Ayala [facility] 11/06/2022 12:12:07 Imaging Results None recorded. [...] Elsewher e: Yes Loca tion: [facility] odify By: yasmine zarco DateTime : 12/12/19 18 11:30:00 AM Not [...] Prescrib ed Elsewher e: No Locat ion: [facility] By: yasmine zarco DateTime : 01/22/20 15 02:44:59 PM Not [...] Prescrib ed Elsewher e: Yes Loca tion: [facility] By: yasmine zarco DateTime : 12/12/19 18 11:30:00 AM Not Available Not Available Not Available bupropion HCl XL 300 mg 24 hr tablet, extended release take 1 tablet by oral route every day active Not Available Not Available No t Available bupropion HCl (bulk) 100 % powder 12/11 completed Prescrib ed Elsewher e: Yes Loca tion: [facility] By: sharon tz Judeou ntdarrel DateTime : 12/12/19 18 11:30:00 AM Not Available Not Available Not Available Cymbalta 20 mg capsule,d elayed release take 3 Capsule by oral route every day 12/11 completed Prescrib ed Elsewher e: Yes Loca tion: [facility] Saundra stinson By: sharon tz Encou nter DateTime : 01/18/20 01:15:00 PM Not Available Not Available Not [...] Updated DateTime 11/06/2022 167.64 cm 33.5 kg/m2 62720.78 g 140 mm[Hg] 82 mm[Hg] Cary Ayala [facility] 12:30:59 Social History Question Answer Notes LastModified by Hum Details LastModified Time Tobacco Smoking Status Current Every Day Smoker Cary Ayala [facility], [facility] 11/06/2022 12:14:24 Are You Blind Or Do You Have Difficulty Seeing? No Information not available 11/06/2022 Are You Deaf Or Do You Have Serious Difficulty Hearing? No Information not available 11/06/2022 Do You Have Difficulty Walking Or Climbing Stairs? No Information not available 11/06/2022 Sex: Unknown Functional Status Question Answer Note LastModified by Hum Details LastModified Time What is your level of alcohol consumption? Occasional Information not available 11/06/2022 Are you able [...] Congenital heart disease Medical History Condition Response Allergies (Food, seasonal, environmental ) Y Other Y Breast Cancer N Drug/Latex Allergies/Reactions N Blood Transfusion N Dermatologic Disorders N Lung Disease Y Defects or Inherited Disease N Breast Problem N Gestational Diabetes N Hematologic disorders N Anesthesia Complications N History of STI N Deep Vein Thrombosis N Polycystic ovary syndrome N Anxiety Disorder N Autoimmune disease N Arthritis N Infertility N Polyps N Acid Reflux (GERD) N History of abnormal pap N Cancer N Stroke N Varicosities N Neurologic/Epilepsy N Endometriosis N High Cholesterol Y Headaches N Fibromyalgia N Kidney Disease N Heart Problems N Kidney or Bladder Problems N Thyroid Problems N GI Problems N Eating Disorder N Anemia N Art (IVF or FET) N Psychiatric Illness N Ovarian Cancer N Diabetes N Pulmonary (TB, Asthma) N Hepatitis/Liver Disease N No Past Medical History N Eczema N Urinary Tract Infection N Abuse/Domestic Violence N Asthma N Trauma/Violence N Depression/ depression Y Heart Disease N Pre-Eclampsia N Hypertension N Osteoporosis N Thrombophilias N Gynecological History Statement/Question Response STIs/STDs N [...] SNOMED-CT Code Diagnosis ICD10 Code Diagnosis Note [id number] ROCAEL Lantigua [place] [address] [address] 11/06/2022 11:27:31 11/06/2022 12:36:50 Gynecologic examination 61489718 Z01.419 Take Calcium with Vitamin D daily. Do monthly self breast exams. It is advised to get annual flu shot in the fall and she could obtain at [facility] or [facility] clinic. If you haven't received [...] questions call or respond to this email Shantellegonzalo garcia pap 2018 - normalpap updated todaySTI testing declinedma mmogram order given - encouraged to schedulede xa order given - encouraged to scheduleco lonoscopy - has order from PCPUTD with PCP for routine labssmokin g cessation discussed and encouraged RTC in 1 year or sooner if needed BP elevated, precaution s discussed. Encouraged f/u with PCP Screening for malignant neoplasm of breast 073864075 Z12.39 Screening for osteoporosis 383709372 Z13.820 Health Concerns Section Related Observation LastModified by Organization Detai ls LastModified Time None Recorded Concern Status LastModified by Organization Details LastModified Time None Recorded Advance Directives Directive None Recorded Payers Encounter Date Sequence Insurance Name Policy Number Policy Garcia Covered Member ID Garcia Member ID Guarantor Name 11/06/2022 1 [facility] (O) [id number] Mamadou Fuentes [id number] Rowan Fuentes Notes Date Note Type Note Provider Name and Address Organization Details Recorded Time 11/06/2022 text/html Annual Track Patrol Post-MenopausalRepor ye bypatient.Menopausal Symptoms:no menopausal symptoms; normal [...] bone density ROCAEL Lantigua [address], [place], [address], [place] [facility] 11/06/2022 12:32:14 OBGyn Episode Ob Episode Information Episode Created Date Number of Fetuses Patient Bloodtype Patient rh Status Prepregnancy Weight lbs Domestic Partner Domestic Partner Phone Father Name Vp Lab Status 11/07/19 23 1 CLOSED Fetus Data First Name Last Name Admitted to NICU Weight (g) Sex Living Outcome Pediatric Complications Fetus ID Race Codes Race Delivery Type 3175.14 4 F [id number] Vaginal Delivery Eric Calculation Initial Eric Date [...] Domestic Partner Domestic Partner Phone Father Name Vp Lab Status 11/07/19 23 1 CLOSED Fetus Data First Name Last Name Admitted to NICU Weight (g) Sex Living Outcome Pediatric Complications Fetus ID Race Codes Race Delivery Type 3628.73 6 M [id number] Vaginal Delivery Eric Calculation Initial Eric Date [...]
--- OUTSIDE RECORDS SUMMARY | 2024-07-28 06:46 | XMS_ITS | Clinical Summary ---
Author Organization [facility] Address [address] [place] [address] Care Team Providers Care Tax Collector Name Role Phone Unavailable Primary Care Provider [...] age 40, based on guidelines of the [employer] (ACR Practice Parameter for the Performance of Screening and Diagnostic Mammography) and [employer]. For women [...]
--- OUTSIDE RECORDS SUMMARY | 2024-07-28 06:46 | XMS_ITS | Clinical Summary ---
Author Organization [facility] Address [address] [place] [address] Phone Care Team Providers Care Product Scientist Name Role Phone Anita Reevles APRN, JOHN Primary Care Provider Allergies No known active allergies Medications buPROPion (WELLBUTRIN) 300 MG TABLET SR 24 HR XL tablet Take 300 mg by mouth every morning. Active montelukast (SINGULAIR) 10 MG Tablet Take 10 mg by mouth daily. Active MAGNESIUM LACTATE PO Take 1 Tablet by mouth 4 times daily. Active [facility]3 Krill Oil 500 MG Capsule Take 3 [...] Comments Blood Pressure 140/65 02/13/2023 9:12 AM [facility] Pulse 60 02/13/2023 9:12 AM [facility] Temperature 35.7 C (96.3 F) 02/13/2023 9:12 AM [facility] Respiratory Rate 16 02/13/2023 9:12 AM [facility] Oxygen Saturation 100% 02/13/2023 9:12 AM [facility] Inhaled Oxygen Concentration - - Weight 90.2 kg (198 lb 12.8 oz) 02/13/2023 5:52 AM [facility] Height 167.6 cm (5' 6) 02/13/2023 5:52 AM [facility] Body Mass Index 32.09 02/13/2023 5:52 AM [facility] Plan of Treatment Health Maintenance Due Date Last Done Comments Hepatitis C Virus (HCV) Screening 1962 Pneumococcal Immunization (5 0+ years) (1 of 2 - PCV) 1981 Pap Smear 04/21/1983 Cervical Cancer Screening (CCS) 1992 HPV/Cotest 1992 Cologuard 04/21/2007 Colonoscopy 04/21/2007 Colorectal Cancer Screening 04/21/2007 Immunochemical Fecal Occult Blood 04/21/2007 Zoster Immunization (1 of 2) 2012 Mammogram 07/30/2021 07/30/2020 SARS-COV-2 Immunization (2 - season) 2023 04/28/2020 Influenza Immunization (Seas on Ended) 2024 Respiratory Syncytial Virus (RSV) Immunization (Adult) (1 - 1-dose 75+ series) 2037 DTaP/Tdap/Td Immunization Discontinued 2022, 02/19/2008 TdaP Immunization Completed 05/08/2022, 02/19/2008 Hepatitis B Immunization Aged Out No longer eligible based on patient's age to complete this topic Human Papillomavirus (HPV) Immunization Aged Out No longer eligible based on patient's age to complete this topic Meningococcal Immunization (ACWY) Aged Out No longer eligible based on patient's age to complete this topic Rotavirus Immunization Aged Out No lo nger eligible based on patient's age to complete this topic Insurance Care Teams Product Scientist Relationship Specialty Start Date End Date Anita Reveles, LINUX SYSTEM ENGINEER, DYNAMITE RECLAIMER [id number] [address] [facility] [address] [place] [phone] PCP - General Advanced Practice Nurse 02/08/23
--- OUTSIDE RECORDS SUMMARY | 2024-07-28 06:46 | XMS_ITS | Patient Health Record ---
Author Organization [facility] Address [address] [place] [address] Care Team Providers Care Induction Machine Operator Name Role Phone Love Multani Unavailable [phone] Allergies No Known Allergies Reason For Referral [...] OIL (OMEGA 3 AND 6) *Reorder from [facility] and Interaction Alerts* 07/09/2023 Active [...] W/U Status Risk Notes Problem Tobacco user (406216136) Nicotine dependence, unspecified, uncomplicated (F17.200) 07/09/19 24 Active confirmed Problem Mild recurrent major depression (20171886) Major depressive disorder, recurrent, mild (F33.0) 07/09/19 24 Active confirmed Problem Generalized anxiety disorder (68529998) Generalized anxiety disorder (F41.1) 07/09/19 24 Active confirmed Problem Posttraumatic stress disorder (98861549) Post-traumatic stress disorder, chronic (F43.12) 06/25/19 19 Active confirmed Problem Long-term current use of drug therapy (814505889) Other senior living (current) drug therapy (Z79.899) 07/25/19 19 Active confirmed Vital Signs Heart Rate 60 /min 06/09/2024 Height-cm 167.64 cm 06/09/2024 Blood pressure diastolic 85 mm Hg 06/09/2024 Weight-kg 86.68 kg 06/09/2024 Height 66.00 in 06/09/2024 Blood pressure systolic 137 mm Hg 06/09/2024 Weight 191.1 lbs 06/09/2024 BMI 30.84 kg/m2 06/09/2024 Encounters Encounter Location Date Provider Diagnosis [facility] [facility] [address] [facility] [address] [place] [address] 12/10/2023 Love Multani Major depressive disorder, recurrent, mild F33.0 ; Generalized anxiety disorder F41.1 ; Nicotine dependence, unspecified, uncomplicated F17.200 ; Post-traumatic stress disorder, chronic F43.12 and Other senior living (current) drug therapy Z79.899 [facility] [facility] [facility] [address] [facility] [address] [place] [address] 06/09/2024 Love Multani Nicotine use Z72.0 ; Major depressive disorder, recurrent, mild F33.0 ; Generalized anxiety disorder F41.1 ; Nicotine dependence, unspecified, uncomplicated F17.200 ; Post-traumatic stress disorder, chronic F43.12 ; Other senior living (current) drug therapy Z79.899 and Encounter for screening for depression Z13.31 Assessments Encounter Date Diagnosis (ICD Code) Assessment Notes Treatment Notes Treatment Clinical Notes Section Notes 12/10/2023 Major depressive disorder, recurrent, mild (ICD-10 [...] and interactions with prescribed medications. 06/09/2024 Nicotine use (ICD-10 - Z72.0) Depression- [...] and interactions with prescribed medications. 12/10/2023 Other rat exterminator (current) drug therapy (ICD-10 - Z79.899) Medication [...] and interactions with prescribed medications. 06/09/2024 Other senior living (current) drug therapy (ICD-10 - Z79.899) Medication [...] Name:Love Multani , 12/01/2024 11:00:00 AM, [address] [facility] [address] [facility] [address] [facility] [address], [place], [address], Insurance Providers Payer Name Payer Address Payer Phone Subscriber Number Group Number Insured Name Patient Relationship to Insured Coverage Start Date Coverage End Date [employer] [address] [place] [address] [id number] OLIVIA RUDOLPH Self - patient is the insured Medical (General) History Medical History History ICD Code Problems: Adjustment disorder Generalized anxiety disorder Mild recurrent major depression Moderate recurrent major depression Nicotine dependence ,
--- OUTSIDE RECORDS SUMMARY | 2024-07-28 06:46 | XMS_ITS | Clinical Summary ---
Author Organization [facility] Address [address] [place] [address] Care Team Providers Care Sawmill Tally Clerk Name Role Phone Unavailable Primary Care Provider [...]
== END 2024-07-28 06:43 | disposition home or self-care (01) ==
PROVIDERS: PCP Physician Assistant; Visit Provider Physician Assistant
DX: N28.1 Cyst of kidney, acquired (principal)
CPT/HCPCS: 76700